=== PATIENT | female | born 1970 | race Caucasian/White ===

== ENCOUNTER → 2017-02-25 | Outpatient (CLI) | payer BC ==
--- NOTE | 2017-02-26 08:54 | WWHP ---
DATE OF SERVICE: 02/25/2017 CHIEF COMPLAINT: The patient is here for her routine gynecologic exam and mammogram. HPI: This is a 46-year-old G0 with an LMP of 02/21/2017. The patient has been having episodes of feeling warm and this is throughout the day, but can also be at night. She states her periods are regular every month. She has been experiencing some pain in the area of the left hip and this has been going on for about 2 to 3 months. She states she thinks it may be a bit worse around the time of her period. She states the pains can be sharp, but she is not experiencing any pain at this time. PAST MEDICAL HISTORY: Chronic hypertension and possible peptic ulcer disease. She has had extra axillary breast tissue on the right side since about 1999. MEDICATIONS: 1. Hydrochlorothiazide 25 mg daily. 2. Protonix 1 daily. ALLERGIES: No known drug allergies. PAST SURGICAL HISTORY: Laparoscopic cholecystectomy 2013 and colonoscopy in 2013. 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 SOCIAL HISTORY: She denies tobacco, alcohol, and drug use. 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 She is currently living with her parents who have some medical problems. She is not seeing anybody at this time and has never been sexually active. FAMILY HISTORY: Unchanged from the 2015 H&P. REVIEW OF SYSTEMS: Weight has been stable. She denies cardiac or GI problems. RESPIRATORY: She has noticed she does seem to cough more when she is lying down. PHYSICAL EXAM: Blood pressure 156/88. Height 5 feet 2-1/2 inches. Weight 157 pounds. Temperature 97.7, pulse 78. This a well-developed, well-nourished white female who is alert and oriented x3, in no acute distress. HEENT is within normal limits. NECK: Supple without mass or thyromegaly. CHEST AND LUNGS: Clear to auscultation. HEART: Regular rate and rhythm. Breasts are without mass or discharge. Axillary exam is negative for adenopathy. BACK: Negative for CVA tenderness. ABDOMEN: Soft, nontender, without palpable masses. PELVIC EXAM: Normal external genitalia. The introitus is small consistent with being a virgin. A small speculum was inserted. A flat polypoid mass measuring approximately 1.5 x 2 x 0.5 cm was visualized. This was pink, the color of mucosal tissue. This had a benign appearance. Upon doing the Pap smear, the cervix or polypoid tissue was friable and bleed fairly easily. There is no cervical motion tenderness. The uterus is midposition, nongravid size and nontender. There are no palpable adnexal masses or tenderness. Rectal exam was not performed as attention was turned to the polypoid mass. I discussed the findings with the patient, with her verbal consent removal of the mass was performed. The speculum was reinserted. A ring forceps was used to grasp the polypoid mass and the mass was removed by rotating the ring forceps instrument. The site of its attachment to the cervix was made hemostatic with Monsel solution. The patient tolerated the procedure well. The estimated blood loss was approximately 2 to 3 mL. There were no complications. IMPRESSION: 1. A 46-year-old virginal female with polypoid cervical mass measuring approximately 2 x 1.5 x 0.5 cm. The polypoid mass was removed at this appointment without difficulty. 2. Intermittent pain in the area of the left hip with no significant physical findings at this time and no current pain at this time. Differential diagnosis will include hip joint problems as well as pain from the pelvis including enlarging uterine fibroid and ovarian cyst. PLAN: 1. Pap smear was performed. 2. Self breast examination was discussed. 3. Mammogram will be done today. 4. The polypoid cervical tissue will be sent for pathological examination. 5. The patient will follow up with her primary care physician for her hypertension and her elevated blood pressure today. 6. Will plan on repeating the pelvic ultrasound to see if there any gynecologic causes for the pain in the area of the left hip. 7. She will also return in one year and p.r.n.
--- NOTE | 2017-02-27 11:47 | MM ---
Reason for exam: screening (asymptomatic). Last mammogram was performed 2 years and 2 months ago. History: Patient is nulliparous. Physical Findings: A clinical breast exam by your physician is recommended on an annual basis and results should be correlated with mammographic findings. MG Screening Mammo w CAD Bilateral CC and MLO view(s) were taken. Prior study comparison: January 03, 2015, bilateral MG screening mammo w CAD. The breast tissue is heterogeneously dense. This may lower the sensitivity of mammography. Reinform shaped asymmetry lateral posterior left breast. As this was not seen previously, a 6 month follow up is recommended. A lymph node is favored. ASSESSMENT: Probably benign, BI-RAD 3 RECOMMENDATION: Follow-up diagnostic mammogram of the left breast in 6 months. DESTINEY
== END | disposition home or self-care (01) ==
LOC: WWCWWP 13:14
PROVIDERS: ATTEND Obstetrics & Gynecology
DX: Z12.31 Encounter for screening mammogram for malignant neoplasm of breast (principal); N84.1 Polyp of cervix uteri; N87.9 Dysplasia of cervix uteri, unspecified; N72 Inflammatory disease of cervix uteri
CPT/HCPCS: 88305; G0202

== ENCOUNTER → 2018-05-13 | Outpatient (CLI) | payer OTHER ==
[2018-05-13 09:29] VITALS: BP 166/77; PULSE 77; RESP 18; TEMP 97.7; BMI 28.1
--- NOTE | 2018-05-13 10:23 | P.HPOB ---
History of Present Illness H&P Date: 05/13/18 Chief Complaint: The patient is here for her routine gynecologic exam and mammogram. This is a 47-year-old G0 with an LMP of 04/20/2018. The patient's menses are regular every 28 days. They typically last about 7 days. 3 days are heavier. She has noticed 2 days of additional spotting after her menstrual flow seems to be complete. She is also experiencing some vaginal and vulvar pruritus which she noticed the day after jumping into a pool. She states she feels like she has the start of a yeast infection. She denies any significant discharge or odor. She has noticed some right breast soreness during the past few days. She had an abnormal left mammogram one year ago and did not go for the 6 month follow-up as she was instructed. She denies any nipple discharge. She is not sexually active and is a virgin. Review of Systems The patient has lost 3 pounds over the last year. She denies respiratory, cardiac, or G.I. problems. Past Medical History Past Medical History: Hypertension Additional Past Medical History / Comment(s): possible TIA in 2012, heavy menstral cycles resulting in chronic anemia, esophageal stricture per GI doc does not require intervention at this time,endometriosis, multiple UTI's. 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 She had a 3.3 cm fibroid in 2010. 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 - Past Family History Father Family Medical History: Cancer (Skin), Diabetes Mellitus Mother Family Medical History: Myocardial Infarction ([place]) Medications and Allergies Home Medications Medication Instructions Recorded Confirmed Type Ferrous Sulfate [Iron (65 MG 325 mg PO DAILY 02/09/16 02/09/16 History Elemental)] Lisinopril-Hctz 10-12.5 mg 1 tab PO DAILY 02/09/16 02/09/16 History [Zestoretic 10-12.5] Atorvastatin [Lipitor] 40 mg PO HS #30 tab 02/11/16 Rx HYDROcodone/APAP 5-325MG [[place] 1 tab PO Q6HR PRN #15 tab 02/11/16 Rx 5-325] L.acidoph,Paracasei, B.lactis 1 each PO DAILY 7 Days capsule 02/11/16 Rx [Probiotic] Levofloxacin [Levaquin] 500 mg PO DAILY #5 tab 02/11/16 Rx Pantoprazole [Protonix] 40 mg PO AC-BRKFST #30 tablet. 02/11/16 Rx Allergies Allergy/AdvReac Type Severity Reaction Status Date / Time ANTIBIOTIC FOR UTI Allergy Itching Uncoded 05/13/18 09:39 Exam - Vital Signs Vital signs: Vital Signs Temp Pulse Resp BP 05/13/18 09:21 97.7 F 77 18 166/77 Intake and Output 05/12/18 05/13/18 05/13/18 22:59 06:59 14:59 Other: Weight 69.853 kg Height 5'2", BMI 28.2. This is a well-developed well-nourished white female who is alert and oriented times 3 in no acute distress. HEENT: Within normal limits. NECK: Supple without mass or thyromegaly. CHEST AND LUNGS: Clear to auscultation. HEART: Regular rate and rhythm. BREASTS: Are without mass or discharge. The right breast has some accessory breast tissue at the 10 o'clock position measuring approximately 3 x 4 cm that is on the edge of the axilla. This is mildly tender and this is where she has been having some breast soreness recently. There are no palpable masses within this soft accessory tissue. The left breast is nontender. AXILLARY EXAM: Negative for adenopathy. BACK: Negative for CVA tenderness. ABDOMEN: Soft, nontender, without palpable masses. PELVIC EXAM: external genitalia has minimal generalized erythema without focal lesion. Introitus is virginal. Cervix and vagina appear normal. There is no unusual discharge. There is no evidence of prolapse. The uterus is midposition , nongravid size and nontender. There are no palpable adnexal masses or tenderness. RECTAL EXAM: negative for mass or tenderness and is negative for occult blood. EXTREMITIES: Nontender. IMPRESSION: 1. 47-year-old virginal female with recent vulvar and vaginal pruritus after swimming in a pool. Possible vulvar irritation from the pool water or possible early mora vaginitis. 2. Right breast soreness in accessory tissue and devious abnormal left mammogram without the recommended six-month follow-up. 3. 2 days of spotting at the end of menses just after menstrual flow seems to have stopped. This probably represents some perimenopausal hormonal changes causing lengthening of the monthly menstrual flow. PLAN: 1. Pap smear was deferred since she had a normal one last year. 2. Self breast awareness was discussed. 3. Diagnostic bilateral mammogram will be done today. 4. The patient will keep a menstrual calendar and call if she's having greater menstrual irregularity. 5. Diflucan 150 mg PO times 1 and Kenalog 0.1% cream b.i.d. PRN pruritus. An electronic prescription will be sent to [facility] pharmacy. 6. She will return one year and PRN.
--- NOTE | 2018-05-13 11:31 | MM ---
Reason for exam: additional evaluation requested from prior study. Last mammogram was performed 1 year and 3 months ago. History: Patient is nulliparous. Physical Findings: Dr. Blackwood did not find any significant physical abnormalities on exam. MG 3D Diag Mammo W/Cad KASSANDRA Bilateral CC and MLO view(s) were taken. XCCL view(s) were taken of the left breast. Prior study comparison: February 25, 2017, bilateral MG screening mammo w CAD. January 03, 2015, bilateral MG screening mammo w CAD. The breast tissue is extremely dense which could obscure a lesion on mammography. There is no discrete abnormality. Skin tag outer left breast. These results were verbally communicated with the patient and result sheet given to the patient on 05/13/18. ASSESSMENT: Benign, BI-RAD 2 RECOMMENDATION: Routine screening mammogram of both breasts in 1 year.
== END | disposition home or self-care (01) ==
LOC: WWCWWP 09:08
PROVIDERS: ATTEND Obstetrics & Gynecology
DX: N64.4 Mastodynia (principal); R92.8 Other abnormal and inconclusive findings on diagnostic imaging of breast
CPT/HCPCS: 77066; G0279; 77062

== ENCOUNTER → 2018-07-17 | Outpatient (CLI) | payer OTHER ==
[2018-07-17 13:08] LABS: Anisocytosis Slight; HCT 31.9 % (34.0-46.0); HGB 9.7 gm/dL (11.4-16.0); Hypochromasia Marked; MCH 23.2 pg (25.0-35.0); MCHC 30.5 g/dL (31.0-37.0); MCV 76.1 fL (80.0-100.0); Mean Platelet Volume 7.2; Microcytosis Moderate; Platelet Count 304 k/uL (150-450); RBC 4.19 m/uL (3.80-5.40); RDW 18.5 % (11.5-15.5); WBC 6.2 k/uL (3.8-10.6)
[2018-07-17 13:15] LABS: Appearance,Urine Clear (Clear); Bacteria,Urine Rare /hpf; Bilirubin,Urine Negative (Negative); Blood,Urine Negative (Negative); Color,Urine Yellow; Glucose,Urine (UA) Negative (Negative); Ketones,Urine 1+ (Negative); Leukocyte Esterase,Urine Trace (Negative); Mucus,Urine Moderate /hpf; Nitrite,Urine Negative (Negative); Protein,Urine Trace (Negative); Specific Gravity,Urine 1.021 (1.001-1.035); Squamous Epithelial Cell,Urine 3 /hpf (0-4); Urobilinogen,Urine <2.0 mg/dL (<2.0); WBC,Urine 2 /hpf (0-5)
[2018-07-17 13:24] LABS: ALT 44 U/L (9-52); AST 29 U/L (14-36); Albumin 4.1 g/dL (3.5-5.0); Alkaline Phosphatase 66 U/L (38-126); Anion Gap 7 mmol/L; Blood Urea Nitrogen 10 mg/dL (7-17); Calcium 9.5 mg/dL (8.4-10.2); Carbon Dioxide 27 mmol/L (22-30); Chloride 106 mmol/L (98-107); Cholesterol 196 mg/dL (<200); Glucose 85 mg/dL (74-99); HDL Cholesterol 44 mg/dL (40-60); LDL Cholesterol,Calculated 135 mg/dL (0-99); Potassium 4.1 mmol/L (3.5-5.1); Sodium 140 mmol/L (137-145); Total Bilirubin 0.3 mg/dL (0.2-1.3); Total Protein 6.9 g/dL (6.3-8.2); Triglycerides 87 mg/dL (<150)
[2018-07-17 19:55] LABS: Hemoglobin A1C 5.6 % (4.0-6.0)
== END | disposition home or self-care (01) ==
LOC: LABWHC1 12:41
PROVIDERS: ATTEND Family Medicine
DX: Z00.00 Encounter for general adult medical examination without abnormal findings (principal); E66.3 Overweight
CPT/HCPCS: 36415; 80053; 80061; 81001; 82306; 83036; 84443; 85027

== ENCOUNTER → 2019-08-09 | Outpatient (CLI) | payer OTHER ==
[2019-08-09 12:58] LABS: Appearance,Urine Clear (Clear); Bilirubin,Urine Negative (Negative); Blood,Urine Negative (Negative); Color,Urine Yellow; Glucose,Urine (UA) Negative (Negative); Ketones,Urine Negative (Negative); Leukocyte Esterase,Urine Negative (Negative); Nitrite,Urine Negative (Negative); Protein,Urine Negative (Negative); Specific Gravity,Urine 1.025 (1.001-1.035); Urobilinogen,Urine <2.0 mg/dL (<2.0)
[2019-08-09 13:04] LABS: HCT 36.1 % (34.0-46.0); HGB 11.8 gm/dL (11.4-16.0); MCH 28.8 pg (25.0-35.0); MCHC 32.7 g/dL (31.0-37.0); Mean Platelet Volume 6.6; Platelet Count 408 k/uL (150-450); RDW 14.2 % (11.5-15.5); WBC 10.2 k/uL (3.8-10.6)
[2019-08-09 19:29] LABS: African American GFR (CKD) 116.3 (60.0-200.0); Albumin 4.4 g/dL (3.80-4.90); Albumin/Globulin Ratio 2.2 (1.60-3.17); Anion Gap 12.9 mmol/L (4.00-12.00); BUN/Creat Ratio 17.14 Ratio (12.00-20.00); Calcium 9.5 mg/dL (8.7-10.3); Carbon Dioxide 25.1 mmol/L (21.6-31.8); Chol/HDL Ratio 5.09; LDL Cholesterol,Calculated 159.8 mg/dL (0.0-131.0); Potassium 4.3 mmol/L (3.5-5.5); Total Bilirubin 0.2 mg/dL (0.2-1.2); Total Protein 6.4 g/dL (6.2-8.2); VLDL Calculation 28.2 mg/dL (5.00-40.00)
[2019-08-09 20:42] LABS: Hemoglobin A1C 5.9 % (4.0-6.0)
== END ==
LOC: LABWHC1 12:01
PROVIDERS: ATTEND Family Medicine
DX: Z00.00 Encounter for general adult medical examination without abnormal findings (principal); E66.3 Overweight
CPT/HCPCS: 36415; 80053; 80061; 81003; 82306; 83036; 84443; 85027

== ENCOUNTER → 2019-09-14 | Outpatient (CLI) | payer OTHER ==
[2019-09-14 11:39] VITALS: BP 142/90; PULSE 77; RESP 18; TEMP 98.2; BMI 29.6
--- NOTE | 2019-09-14 12:26 | P.HPOB ---
History of Present Illness H&P Date: 09/14/19 Chief Complaint: The patient is here for her routine gynecologic exam and ma mmogram. This is a 49-year-old G0 with an LMP of 08/21/2019. The patient denies any sexual activity in her lifetime. She is without gynecologic complaints. Menstrual periods are regular every month lasting 6 days with 1-2 days of heavier flow. They are slightly shorter and less heavy than in the past. Review of Systems The patient has gained 8 pounds over the last year. She denies respiratory, cardiac, or G.I. problems. Past Medical History Past Medical History: Hypertension Additional Past Medical History / Comment(s): possible TIA in 2012, heavy menstral cycles resulting in chronic anemia, esophageal stricture per GI doc does not require intervention at this time, multiple UTI's. 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 She had a 3.3 cm fibroid in 2010. History of endometriosis. 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 She is not seeing anybody and is not sexually active. - Past Family History Father Family Medical History: Cancer, Diabetes Mellitus Additional Family Medical History / Comment(s): Skin cancer. Mother Family Medical History: Myocardial Infarction ([place]) Medications and Allergies Home Medications Medication Instructions Recorded Confirmed Type Ferrous Sulfate [Iron (65 MG 325 mg PO DAILY 02/09/16 09/14/19 History Elemental)] Lisinopril-Hctz 10-12.5 mg 1 tab PO DAILY 02/09/16 09/14/19 History [Zestoretic 10-12.5] Pantoprazole [Protonix] 40 mg PO SADIA #30 tablet. 02/11/16 09/14/19 Rx Cholecalciferol (Vitamin D3) 2,000 unit PO DAILY 09/14/19 09/14/19 History [Vitamin D3] Ibuprofen [Motrin] 400 mg PO Q6HR PRN 09/14/19 09/14/19 History Allergies Allergy/AdvReac Type Severity Reaction Status Date / Time ANTIBIOTIC FOR UTI Allergy Itching Uncoded 09/14/19 11:32 Exam Vital Signs Temp Pulse Resp BP Pulse Ox 09/14/19 11:36 98.2 F 77 18 142/90 100 Intake and Output 09/13/19 09/14/19 09/14/19 22:59 06:59 14:59 Other: Weight 73.482 kg Height 5 feet 2 inches, weight 162 pounds. BMI 29.6. This is a well-developed well-nourished white female who is alert and oriented times 3 in no acute distress. HEENT: Within normal limits. NECK: Supple without mass or thyromegaly. CHEST AND LUNGS: Clear to auscultation. HEART: Regular rate and rhythm. BREASTS: Are without mass or discharge. AXILLARY EXAM: Negative for adenopathy. BACK: Negative for CVA tenderness. ABDOMEN: Soft, nontender, without palpable masses. PELVIC EXAM: Normal external genitalia. The introitus is virginal and allows a small Graves speculum only. Cervix and vagina appear normal. There is no unusual discharge. There is no evidence of prolapse. The uterus is midposition, 10-12week size and nontender. There are no palpable adnexal masses or tenderness. RECTAL EXAM: Rectovaginal exam is negative for mass or tenderness and is negative for occult blood. EXTREMITIES: Nontender. IMPRESSION: 1. 49-year-old virginal female with mild uterine enlargement and otherwise normal gynecologic exam. 2. History of uterine fibroids. PLAN: 1. Pap smear was performed. 2. Self breast awareness was discussed with the patient. 3. Screening mammogram will be done today. 4. The patient will keep a menstrual calendar. She will call if menstrual problems. 5. Pelvic ultrasound was recommended to further evaluate the mild uterine enlargement and history of uterine fibroids. The order slip was given to the patient for this. 6. She was advised to return in one year for her annual well woman exam and as needed.
--- NOTE | 2019-09-15 11:47 | MM ---
Reason for exam: screening (asymptomatic). Last mammogram was performed 1 year and 4 months ago. History: Patient is nulliparous. Physical Findings: A clinical breast exam by your physician is recommended on an annual basis and results should be correlated with mammographic findings. MG Screening Mammo w CAD Bilateral CC, MLO, and XCCL view(s) were taken. Prior study comparison: May 13, 2018, bilateral MG 3d diag mammo w/cad KASSANDRA. February 25, 2017, bilateral MG screening mammo w CAD. The breast tissue is extremely dense which could obscure a lesion on mammography. There are benign appearing round calcifications bilaterally. There is no discrete abnormality. ASSESSMENT: Benign, BI-RAD 2 RECOMMENDATION: Routine screening mammogram of both breasts in 1 year.
== END | disposition home or self-care (01) ==
LOC: WWCWWP 11:15
PROVIDERS: ATTEND Obstetrics & Gynecology
DX: Z12.31 Encounter for screening mammogram for malignant neoplasm of breast (principal)
CPT/HCPCS: 77067

== ENCOUNTER → 2019-09-23 | Outpatient (CLI) | payer OTHER ==
--- NOTE | 2019-09-24 07:21 | US ---
EXAMINATION TYPE: US pelvic complete DATE OF EXAM: 09/23/2019 COMPARISON: CT & US CLINICAL HISTORY: R68.89 UTERINE ENLARGEMENT. TECHNIQUE: Transabdominal (TA). Order stated only transabdominal. Date of LMP: on right now. EXAM MEASUREMENTS: Uterus: 9.4 x 5.9 x 6.8 cm Endometrial Stripe: 1.3 cm Right Ovary: 5.3 x 4.4 x 3.9 cm Left Ovary: 7.3 x 6.7 x 6.0 cm 1. Uterus: Anteverted possible fibroid right uterus measures at least 4.2 x 1.8 x 3.2 cm 2. Endometrium: 1.3 3. Right Ovary: cyst measures 4.9 x 2.7 x 3.8 cm 4. Left Ovary: complicated cyst measures 5.5 x 4.4 x 6.3. 5. Bilateral Adnexa: wnl 6. Posterior cul-de-sac: no free fluid Order states only transabdominal. Unable to doppler ovaries transabdominally. IMPRESSION: 1. Complex 5.5 cm lesion of the left ovary has homogeneous internal echoes and was not seen on the ex am of 2014. Differential consideration is for endometrioma, hemorrhagic cyst, mucinous cystadenoma or mucinous cystadenocarcinoma. Consensus criteria recommends follow-up ultrasound in 6-[address] able this would be favored to represent an endometrioma or mucinous neoplasm. If resolved or smaller this would be favored to represent an involuting hemorrhagic cyst. 2. Probable 4.2 cm intramural leiomyoma, enlarged from 2015.
== END | disposition home or self-care (01) ==
LOC: RADUSWWP 15:57
PROVIDERS: ATTEND Obstetrics & Gynecology
DX: D25.9 Leiomyoma of uterus, unspecified (principal); N85.2 Hypertrophy of uterus
CPT/HCPCS: 76856

== ENCOUNTER 2019-10-06 16:07 | Emergency (ER) | payer OTHER ==
[2019-10-06 16:27] VITALS: BP 150/86; PULSE 83; RESP 18; TEMP 98
[2019-10-06] MEDS ORDERED: CEPHALEXIN 500 MG CAP PO STA (16:46)
[2019-10-06] MEDS ORDERED: LIDOCAINE 1% INJ 10MG/ML (20 ML MDV) SQ ONE (16:47)
[2019-10-06] MEDS ORDERED: KETOROLAC 60 MG/2 ML VIAL IM STA (16:57)
--- NOTE | 2019-10-06 16:57 | ED ---
Upper Extremity HPI - General Chief Complaint: Extremity Injury, Upper Stated Complaint: left thumb crushing injury Time Seen by Provider: 10/06/19 16:37 Source: patient Mode of arrival: ambulatory Limitations: no limitations - History of Present Illness Initial Comments: Patient is a 49-year-old female presenting to emergency Department with complaints of an injury to her left thumb that happened just prior to arrival. Patient states she was stacking some wood when a few pieces fell onto her left thumb. Patient states her left thumb nail is split and that her left thumb "is flat." Patient wrapped her thumb in a towel and stuck it in ice bag and came straight to the ER. Patient denies being on blood thinners. Patient's tetanus vaccine is up-to-date. Patient denies any previous injuries to her left thumb or hand. Bleeding is controlled at this time. Patient has no other complaints at this time. Upon arrival to the ER, vital signs are stable. - Related Data Home Medications Medication Instructions Recorded Confirmed Ferrous Sulfate [Iron (65 MG 325 mg PO DAILY 02/09/16 09/14/19 Elemental)] Lisinopril-Hctz 10-12.5 mg 1 tab PO DAILY 02/09/16 09/14/19 [Zestoretic 10-12.5] Cholecalciferol (Vitamin D3) 2,000 unit PO DAILY 09/14/19 09/14/19 [Vitamin D3] Ibuprofen [Motrin] 400 mg PO Q6HR PRN 09/14/19 09/14/19 Previous Rx's Medication Instructions Recorded Pantoprazole [Protonix] 40 mg PO OSCAR-BRKFST #30 tablet. 02/11/16 Cephalexin [Keflex] 500 mg PO BID 5 Days #10 cap 10/06/19 Allergies Allergy/AdvReac Type Severity Reaction Status Date / Time ANTIBIOTIC FOR UTI Allergy Itching Uncoded 10/06/19 16:27 Review of Systems ROS Statement: Those systems with pertinent positive or pertinent negative responses have been documented in the HPI. ROS Other: All systems not noted in ROS Statement are negative. Past Medical History Past Medical History: Hypertension Additional Past Medical History / Comment(s): possible TIA in 2012, heavy menstral cycles resulting in chronic anemia, esophageal stricture per GI doc does not require intervention at this time, multiple UTI's. 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 She had a 3.3 cm fibroid in 2010. History of endometriosis. History of Any Multi-Drug Resistant Organisms: None Reported Past Surgical History: Cholecystectomy Additional Past Surgical History / Comment(s): colonoscopy 2013 Past Anesthesia/Blood Transfusion Reactions: No Reported Reaction Past Psychological History: No Psychological Hx Reported Smoking Status: Never smoker Past Alcohol Use History: None Reported Past Drug Use History: None Reported - Past Family History Father Family Medical History: Cancer, Diabetes Mellitus Additional Family Medical History / Comment(s): Skin cancer. Mother Family Medical History: Myocardial Infarction ([place]) General Exam - General Exam Comments Initial Comments: GENERAL: Well-appearing, well-nourished and in no acute distress, but appears uncomfortable. HEAD: Atraumatic, normocephalic. EYES: Pupils equal round and reactive to light, extraocular movements intact, sclera anicteric, conjunctiva are normal. ENT: Moist mucous membranes. NECK: Normal range of motion, supple without lymphadenopathy or JVD. LUNGS: Breath sounds clear to auscultation bilaterally and equal. No wheezes rales or rhonchi. HEART: Regular rate and rhythm without murmurs, rubs or gallops. EXTREMITIES: Patient has an obvious deformity of the left thumb and thumb nail. There is minimal bleeding coming from the thumbnail. Patient has pain with palpation of the left thumb. NEUROLOGICAL: Cranial nerves II through XII grossly intact. Normal speech, normal gait. PSYCH: Normal mood, normal affect. SKIN: Warm, Dry, normal turgor, no rashes or lesions noted. Limitations: no limitations Course Vital Signs 10/06/19 16:24 Temperature 98.0 F Pulse Rate 83 Respiratory 18 Rate Blood Pressure 150/86 O2 Sat by Pulse 99 Oximetry Procedures - Laceration Laceration #1 Consent Obtained: verbal consent Indication: laceration Site: other (Left thumb, nail involvement) Size (cm): 1 Description: linear, avulsion Depth: simple, single layer Anesthetic Used: lidocaine 1% Anesthesia Technique: nerve block Amount (mls): 5 Pre-repair: irrigated extensively Type of Sutures: nylon Size of Sutures: 4-0 Number of Sutures: 5 Technique: simple, interrupted Patient Tolerated Procedure: well Additional Comments: 3 sutures were used to tack down nail to nail bed and 2 other sutures were used to fix small lacerations on the side of the nail. Each laceration on each side of the nail is 0.5 cm in length totaling 1 cm. Medical Decision Making - Medical Decision Making Patient is a 49-year-old female presenting with an injury to her left thumb and thumb nail. Patient's left thumb was crushed under to with blocks. Bleeding is controlled at this time. X-rays of the left thumb reveal an acute tuft fracture of the distal phalanx of the left thumb. There is a fragment separation of 3 mm. Patient was given dose of Keflex in the ER. Digital block was performed and 5 sutures were used to tack down nail to nail bed as well as fix lacerations. Patient's wound was bandaged and splint was applied to the left thumb. Patient was given prescription for Keflex, Tylenol 3's as well as orthopedic referral. Patient is stable for discharge at this time. Discussed with patient to alternate between Tylenol threes as well as Motrin. Patient will use ice as needed for swelling and pain control and keep them elevated. Patient is agreeable with this plan of care. Return parameters were discussed with the patient she verbalized understanding. Case discussed with Dr. Robert. Disposition Clinical Impression: Open fracture of tuft of distal phalanx of left thumb Disposition: HOME SELF-CARE Condition: Stable Instructions (If sedation given, give patient instructions): Thumb Fracture (ED) Additional Instructions: Please return to the Emergency Department if symptoms worsen or any other concerns. Alternate between Tylenol and Motrin for pain control. Keep the thumb elevated. May use ice for swelling and pain relief. Take antibiotics as prescribed. Follow-up with orthopedics as discussed. Prescriptions: Cephalexin [Keflex] 500 mg PO BID 5 Days #10 cap Is patient prescribed a controlled substance at d/c from ED?: No Referrals: Jorje Lagunas DO [Primary Care Provider] - 1-2 days Jb Alfonso MD [STAFF PHYSICIAN] - 1-2 days
--- NOTE | 2019-10-06 17:17 | XR ---
EXAMINATION TYPE: XR hand limited LT DATE OF EXAM: 10/06/2019 COMPARISON: NONE HISTORY: Trauma Pain TECHNIQUE: 3 views FINDINGS: There is a transverse fracture through the tuft of the distal phalanx of the thumb. There i s soft tissue deformity. There is no dislocation. Joint spaces are fairly normal. IMPRESSION: Acute tuft fracture distal phalanx of the left thumb. There is fragment separation 3 mm.
[2019-10-06] MEDS ORDERED: ACET/COD 300 MG/30 MG STARTER PACK 6 TAB BTL PO STA (18:49)
== END 2019-10-06 19:26 | disposition home or self-care (01) ==
LOC: EC 16:07
DX: S62.522B Displaced fracture of distal phalanx of left thumb, initial encounter for open fracture (principal); I10 Essential (primary) hypertension; D50.0 Iron deficiency anemia secondary to blood loss (chronic); Z88.1 Allergy status to other antibiotic agents; Z79.899 Other long term (current) drug therapy; W20.8XXA Other cause of strike by thrown, projected or falling object, initial encounter; Y93.89 Activity, other specified; Y92.89 Other specified places as the place of occurrence of the external cause
CPT/HCPCS: 73120; 99283; 12001; 96372; J2001; J1885

== ENCOUNTER → 2019-11-11 | Outpatient (CLI) | payer OTHER ==
--- NOTE | 2019-11-11 13:00 | ECHOF ---
Referral Reason:Hypertension I10 MEASUREMENTS -------- HEIGHT: 157.5 cm WEIGHT: 68.9 kg BP: RVIDd: 2.6 cm (< 3.3) IVSd: 0.9 cm (0.6 - 1.1) LVIDd: 4.4 cm (3.9 - 5.3) LVPWd: 1.0 cm (0.6 - 1.1) IVSs: 1.3 cm LVIDs: 2.5 cm LVPWs: 1.5 cm LA Diam: 2.7 cm (2.7 - 3.8) LAESV Index (A-L): 21.15 ml/m Ao Diam: 3.1 cm (2.0 - 3.7) AV Cusp: 1.8 cm (1.5 - 2.6) LA Diam: 3.4 cm (2.7 - 3.8) MV EXCURSION: 18.525 mm (> 18.000) MV EF SLOPE: 64 mm/s (70 - 150) EPSS: 0.5 cm MV E Taj: 0.48 m/s MV DecT: 203 ms MV A Taj: 0.63 m/s MV E/A Ratio: 0.77 RAP: 5.00 mmHg RVSP: 20.05 mmHg FINDINGS -------- Sinus rhythm. This was a technically good study. LV size, wall thickness and systolic function are normal, with an EF greater than 55%. The left edenilson tricular size is normal. The diastolic filling pattern is normal for the age of the patient 7.49. The right ventricle is normal in size. The left atrial size is normal. Normal LA size by volume 22+/-6 ml/m2. The right atrial size is normal. The aortic valve is trileaflet, and appears structurally normal. No aortic stenosis or regurgitation. Mild mitral annular calcification present. Mild mitral regurgitation is present. Mild tricuspid regurgitation present. Right ventricular systolic pressure is normal at < 35 mmHg. There is no evidence of pulmonary hypertension. There is no pulmonic regurgitation present. The aortic root size is normal. There is no pericardial effusion. CONCLUSIONS -------- 1. Sinus rhythm. 2. This was a technically good study. 3. LV size, wall thickness and systolic function are normal, with an EF greater than 55%. 4. The left ventricular size is normal. 5. The diastolic filling pattern is normal for the age of the patient 7.49 6. The right ventricle is normal in size. 7. The left atrial size is normal. 8. Normal LA size by volume 22+/-6 ml/m2. 9. The right atrial size is normal. 10. The aortic valve is trileaflet, and appears structurally normal. No aortic stenosis or regurgitat ion. 11. Mild mitral annular calcification present. 12. Mild mitral regurgitation is present. 13. Mild tricuspid regurgitation present. 14. Right ventricular systolic pressure is normal at < 35 mmHg. 15. There is no evidence of pulmonary hypertension. 16. There is no pulmonic regurgitation present. 17. The aortic root size is normal. 18. There is no pericardial effusion. ELECTRIC TRACK SWITCH MAINTAINER: Cynthia Webb RDCS
--- NOTE | 2019-11-12 14:12 | ECHOS ---
STRESS ECHOCARDIOGRAM DATE OF SERVICE: 11/11/2019 INDICATIONS: Chest discomfort. MEDICATIONS: BASELINE HEART RATE: 68 BASELINE BLOOD PRESSURE: 144/74 MAXIMUM HEART RATE: 146 MAXIMUM BLOOD PRESSURE: 185/103 85% MPHR: 144 100% MPHR: 169 METS: 10.3 MAXIMUM STAGE REACHED: III TOTAL EXERCISE TIME: 9 minutes CLINICAL INFORMATION: STRESS DATA: Heart rate 68, pressure is 144/74 mmHg. Baseline EKG showed sinus mechanism. The patient exercised on the treadmill according to Leonidas protocol for a total of 9 minutes and achieved 10.3 METs. Max heart rate was 146, which is about 99% of maximum predicted heart rate. Maximum blood pressure was 185/103 mmHg. Clinically the patient did not have any symptoms of chest pain or chest discomfort. The EKG showed about 0.[address]-segment changes at peak exercise as well as on recovery. ECHOCARDIOGRAM IMAGES: On echocardiogram images from parasternal long axis view, parasternal short axis view, apical 4 chamber and apical 2 chamber were obtained as the baseline images, at the peak of the heart rate as well as on recovery. The echocardiogram images showed good augmentation in the left ventricular systolic function without any obvious wall motion abnormalities concerning for ischemia. CONCLUSION: 1. Excellent exercise tolerance. 2. Mild EKG changes in response to exercise. 3. Normal echocardiogram in response to exercise. MMODL / IJN: [id number] /
== END | disposition home or self-care (01) ==
LOC: RADNMMAIN 09:27
PROVIDERS: ATTEND Internal Medicine Cardiovascular Disease
DX: I08.1 Rheumatic disorders of both mitral and tricuspid valves (principal); I10 Essential (primary) hypertension; R07.9 Chest pain, unspecified
CPT/HCPCS: 93306; 93351

== ENCOUNTER → 2019-12-01 | Outpatient (CLI) | payer OTHER ==
--- NOTE | 2019-12-01 15:47 | US ---
EXAMINATION TYPE: US pelvic complete DATE OF EXAM: 12/01/2019 COMPARISON: NONE CLINICAL HISTORY: R19.09 Other intra-abdominal and pelvic swelling,. Follow up bilateral ovarian cyst s TECHNIQUE: Transabdominal (TA). Patient refusing TV exam at this time Date of LMP: 11/22/19 EXAM MEASUREMENTS: Uterus: 8.6 x 6.1 x 5.9 cm Endometrial Stripe: 0.7 cm Right Ovary: 3.9 x 2.7 x 4.2 cm Left Ovary: 5.7 x 4.6 x 5.5 cm 1. Uterus: Anteverted possible fibroid right uterus = 4.1 x 2.5 x 3.1cm as on prior exam 2. Endometrium: appears wnl as visualized 3. Right Ovary: cystic area = 3.2 x 2.7 x 3.3cm . Previous cyst measures 4.9 x 2.7 x 3.8 cm. 4. Left Ovary: complicated cyst = 5.1 x 4.2 x 4.4cm . Previous measurement 5.5 x 4.4 x 6.3 cm. 5. Bilateral Adnexa: appears wnl 6. Posterior cul-de-sac: appears wnl IMPRESSION: 1. Complex cyst left ovary. This was present previously slightly diminished in size without resolutio n. Consider additional workup. Correlation with laboratory results recommended. 2. Simple appearing right ovarian cyst. 3. Uterine fibroids
== END | disposition home or self-care (01) ==
LOC: RADUSWWP 13:54
PROVIDERS: ATTEND Obstetrics & Gynecology
DX: N83.202 Unspecified ovarian cyst, left side (principal); N83.291 Other ovarian cyst, right side; D25.9 Leiomyoma of uterus, unspecified
CPT/HCPCS: 76856

== ENCOUNTER → 2019-12-03 | Outpatient (CLI) | payer OTHER ==
[2019-12-03 12:15] LABS: HGB 10.1 gm/dL (11.4-16.0); Hypochromasia Moderate; MCH 24.8 pg (25.0-35.0); MCHC 30.7 g/dL (31.0-37.0); MCV 80.6 fL (80.0-100.0); Mean Platelet Volume 7.9; Platelet Count 362 k/uL (150-450); RDW 15.2 % (11.5-15.5); WBC 5.4 k/uL (3.8-10.6)
[2019-12-03 19:04] LABS: Anion Gap 5.9 mmol/L (4.00-12.00); Carbon Dioxide 29.1 mmol/L (21.6-31.8); Chol/HDL Ratio 5.45; LDL Cholesterol,Calculated 154.2 mg/dL (0.0-131.0); Potassium 3.9 mmol/L (3.5-5.5); VLDL Calculation 23.8 mg/dL (5.00-40.00)
== END | disposition home or self-care (01) ==
LOC: LABWHC1 11:28
PROVIDERS: ATTEND Internal Medicine Cardiovascular Disease
DX: I10 Essential (primary) hypertension (principal); I25.10 Atherosclerotic heart disease of native coronary artery without angina pectoris; R07.9 Chest pain, unspecified
CPT/HCPCS: 36415; 80051; 80061; 82550; 85027

== ENCOUNTER → 2020-02-02 | Outpatient (CLI) | payer OTHER ==
[2020-02-02 13:25] LABS: Anisocytosis Slight; HCT 33.5 % (34.0-46.0); HGB 10.2 gm/dL (11.4-16.0); Hypochromasia Marked; MCH 23.8 pg (25.0-35.0); MCHC 30.4 g/dL (31.0-37.0); MCV 78.4 fL (80.0-100.0); Microcytosis Slight; Platelet Count 322 k/uL (150-450); RBC 4.27 m/uL (3.80-5.40); RDW 16.3 % (11.5-15.5); WBC 5.5 k/uL (3.8-10.6)
[2020-02-02 20:25] LABS: % Iron Saturation 3.53 (12.00-45.00); Ferritin 8.2 ng/mL (10.0-291.0)
== END | disposition home or self-care (01) ==
LOC: LABWHC1 12:07
PROVIDERS: ATTEND Family Medicine
DX: D64.9 Anemia, unspecified (principal)
CPT/HCPCS: 36415; 82728; 83540; 83550; 85027

== ENCOUNTER → 2020-02-04 | Outpatient (CLI) | payer OTHER ==
--- NOTE | 2020-02-06 14:28 | MR ---
EXAMINATION TYPE: MR abdomen wo/w con DATE OF EXAM: 02/04/2020 COMPARISON: CT scan 04/29/2014, [birth year]10/1962 HISTORY: Adrenal Mass CONTRAST: Standard multiplanar, multisequence MRI departmental protocol utilizing 7 mL intravenous Gadavist roman olinium contrast. FINDINGS: There is a punctate area of high signal seen within the right lobe the liver likely on the basis of a tiny simple cyst. There is slightly heterogeneous in signal correlate for hepatic steatosis or hepat ocellular disease. Liver measures 19 cm compatible with mild hepatomegaly. There is a small splenic granuloma. Kidneys are symmetric in size with no hydronephrosis or renal mass. Pancreas has a normal appearance. The gallbladder is not seen with certainty. Aorta of normal caliber. Bowel gas pattern nonspecific. No free fluid. Small hiatal hernia noted and there is global cardiomegaly. Punctate 2 mm nodule at the right lung ba se cannot be excluded by MRI of the abdomen. There is paracentral disc bulging or protrusion involvin g the lower thoracic spine on the left. Adrenal glands have a normal configuration. It does appear to be mild thickening of the white adrenal gland which is stable dating back to multiple CT scans. No diagnostic evidence of adrenal gland mass . IMPRESSION: 1. No evidence of adrenal mass. 2. Probable tiny hepatic simple cyst. 3. Splenic granuloma. 4. There is a left paracentral disc herniation involving the lower thoracic spine correlate clinicall y.
== END | disposition home or self-care (01) ==
LOC: RADMRIMAIN 15:07
PROVIDERS: ATTEND Obstetrics & Gynecology
DX: D73.89 Other diseases of spleen (principal); M51.24 Other intervertebral disc displacement, thoracic region
CPT/HCPCS: 74183; A9585

== ENCOUNTER → 2020-02-07 | Outpatient (CLI) | payer OTHER | END | disposition home or self-care (01) | CPT/HCPCS: 72197; A9585 ==

== ENCOUNTER → 2020-04-26 | Outpatient (CLI) | payer OTHER ==
[2020-04-26 12:24] LABS: Anisocytosis Slight; Basophils % (A) 1 %; Eosinophils # (A) 0.5 k/uL (0-0.7); Eosinophils % (A) 8 %; HCT 43.7 % (34.0-46.0); Lymphocytes # (A) 1.4 k/uL (1.0-4.8); Lymphocytes % (A) 26 %; MCV 90.9 fL (80.0-100.0); Mean Platelet Volume 7.3; Monocytes # (A) 0.4 k/uL (0-1.0); Monocytes % (A) 7 %; Neutrophils # (A) 2.9 k/uL (1.3-7.7); Neutrophils % (A) 54 %; Platelet Count 298 k/uL (150-450); RBC 4.81 m/uL (3.80-5.40); RDW 17.3 % (11.5-15.5); WBC 5.4 k/uL (3.8-10.6)
[2020-04-26 19:37] LABS: T4, Free (Free Thyroxine) 1.2 ng/dL (0.80-1.80)
[2020-04-26 19:39] LABS: Ferritin 25.6 ng/mL (10.0-291.0)
[2020-04-26 20:54] LABS: % Iron Saturation 21.41 (12.00-45.00); African American GFR (CKD) 98.9 (60.0-200.0); Albumin 4.6 g/dL (3.80-4.90); Anion Gap 9.6 mmol/L (4.00-12.00); BUN/Creat Ratio 22.5 Ratio (12.00-20.00); Calcium 10.1 mg/dL (8.7-10.3); Carbon Dioxide 30.4 mmol/L (21.6-31.8); Globulin 2.3 g/dL (1.6-3.3); Non-African American GFR(CKD) 85.4 (60.0-200.0); Potassium 4.1 mmol/L (3.5-5.5); Total Bilirubin 0.2 mg/dL (0.2-1.2); Total Protein 6.9 g/dL (6.2-8.2)
== END | disposition home or self-care (01) ==
LOC: LABWHC1 10:58
PROVIDERS: ATTEND Family Medicine
DX: R68.89 Other general symptoms and signs (principal); K76.9 Liver disease, unspecified; I10 Essential (primary) hypertension; R20.8 Other disturbances of skin sensation; D50.9 Iron deficiency anemia, unspecified
CPT/HCPCS: 36415; 80053; 82306; 82728; 83540; 83550; 84439; 84443; 84481; 85025

== ENCOUNTER → 2020-05-22 | Outpatient (CLI) | payer OTHER ==
--- NOTE | 2020-05-22 14:16 | MR ---
MR abdomen with and without contrast HISTORY: Mass, elevated CA-125 Multiplanar multisequence and postcontrast images through the upper abdomen following 7 cc Gadavist I V Correlation to prior MR abdomen 02/04/2020, MR pelvis 02/07/2020 The liver, spleen, adrenal glands, kidneys, and pancreas are stable. Gallbladder is not seen. There i s no ascites or retroperitoneal adenopathy. Aorta and inferior vena cava show normal caliber. No aris l obstruction. Lung bases are clear. IMPRESSION: Stable upper abdomen MRI.
== END | disposition home or self-care (01) ==
LOC: RADMRIMAIN 12:38
PROVIDERS: ATTEND Obstetrics & Gynecology
DX: R19.09 Other intra-abdominal and pelvic swelling, mass and lump (principal)
CPT/HCPCS: 74183; A9585

== ENCOUNTER → 2020-06-21 | Outpatient (CLI) | payer OTHER ==
--- NOTE | 2020-06-23 03:42 | MR ---
EXAMINATION TYPE: MR pelvis wo/w con DATE OF EXAM: 06/21/2020 COMPARISON: 02/07/2020 HISTORY: Evaluate cysts CONTRAST: Standard multiplanar, multisequence MRI departmental protocol utilizing 7 mL intravenous Gadavist orman olinium contrast. Uterus is anteverted. There are multiple small cervical cysts posteriorly. There is no evidence of en dometrial mass. Endometrium not enlarged. There is 3.2 cm rounded mass on the posterior uterine fundus consistent with subserosal fibroid that appears unchanged compared to old exam. There are multiple bilateral ovarian cysts. Some of the cysts have lower signal on T2 images that sug gests some hemorrhagic component. There is rounded 3.5 cm cystic area with low signal on T2 images no t changed in size compared to previous exam and consistent with hemorrhagic cyst. There appears to be small amount of free fluid in the pelvis around the cysts. This appears unchanged. There is a domina nt cyst on the left side that measures 3.3 cm which had some mixed signal internal echogenicity on th e posterior aspect on the old exam and is not seen on today's exam. I see no pathologic enhancement o f the cysts. IMPRESSION: Multiple bilateral ovarian cysts with some complex features appear not adversely changed compared to old exam. No emerging suspicious solid component. Uterine fundal fibroid seen posteriorly unchanged. There is small amount of free fluid in the pelvis unchanged.
== END | disposition home or self-care (01) ==
LOC: RADMRIMAIN 12:05
PROVIDERS: ATTEND Obstetrics & Gynecology
DX: N83.201 Unspecified ovarian cyst, right side (principal); N83.202 Unspecified ovarian cyst, left side; D25.9 Leiomyoma of uterus, unspecified; R97.1 Elevated cancer antigen 125 [CA 125]
CPT/HCPCS: 72197; A9585

== ENCOUNTER → 2020-09-20 | Outpatient (CLI) | payer OTHER ==
[2020-09-20 08:16] VITALS: BP 137/82; PULSE 81; RESP 16; TEMP 98.6
--- NOTE | 2020-09-20 09:23 | P.HPOB ---
History of Present Illness H&P Date: 09/20/20 Chief Complaint: The patient is here for her routine gynecologic exam and ma mmogram. This is a 50-year-old G0 with an LMP of late July 2020. Last year the patient underwent a pelvic ultrasound because of a uterine enlargement and is found to have a uterine fibroid which explained the uterine enlargement. Also a 5.5cm complex left ovarian cyst was noted. The patient was referred to Dr. Mccurdy for the mass. The patient was started on Orlissa for possible endometrios is. The patient was on this from December to April 2020. It was discontinued after she started having blood pressure elevations. Menses were less frequent and irregular on Orlissa. She was also found have an elevated CA-125 tests in the patient states it was 231. [facility] [place] She had an MRI which showed bilateral complex ovarian cysts. These were thought to probably represent endometriosis, but there was talk of doing some type of surgery to confirm that it was endometriosis and not cancer. Because of the Covid pandemic, the surgery was delayed. Later in the summer of 2019 the decision was made to repeat the MRI instead of doing surgery. MRIs were done in January and again in April and May. The MRI done in January showed a 4.0 cm uterine fibroid, 4.3 cm complex left ovarian cyst and multiple right ovarian cysts including 2 possible hemorrhagic cysts and the largest measured 3.2 cm. She states the CA-125 test which was repeated decreased into the 80s. After the Orlissa was discontinued, she states her menstrual periods became regular every month lasting 6-7 days. She did have hot flashes while on Orlissa, but they stopped shortly after it was discontinued. Review of Systems The patient's weight has been stable over the last year. She denies respiratory, cardiac, or G.I. problems. Past Medical History Past Medical History: Hypertension Additional Past Medical History / Comment(s): possible TIA in 2012, heavy menstral cycles resulting in chronic anemia, esophageal stricture per GI doc does not require intervention at this time, multiple UTI's. 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 She had a 3.3 cm fibroid in 2010. History of endometriosis. History of Any Multi-Drug Resistant Organisms: None Reported Past Surgical History: Cholecystectomy Additional Past Surgical History / Comment(s): colonoscopy 2013(next after 10yr) Past Anesthesia/Blood Transfusion Reactions: No Reported Reaction Past Psychological History: No Psychological Hx Reported Smoking Status: Never smoker Past Alcohol Use History: None Reported Past Drug Use History: None Reported Additional History: The patient is single and has never been sexually active. 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 - Past Family History Father Family Medical History: Cancer, Diabetes Mellitus Additional Family Medical History / Comment(s): Skin cancer. Mother Family Medical History: Myocardial Infarction ([place]) Medications and Allergies Home Medications Medication Instructions Recorded Confirmed Type Ferrous Sulfate [Iron (65 MG 325 mg PO DAILY 02/09/16 09/20/20 History Elemental)] Lisinopril-Hctz 10-12.5 mg 1 tab PO DAILY 02/09/16 09/20/20 History [Zestoretic 10-12.5] Pantoprazole [Protonix] 40 mg PO OSCAR-BRKFST #30 tablet. 02/11/16 09/20/20 Rx Cholecalciferol (Vitamin D3) 2,000 unit PO DAILY 09/14/19 09/20/20 History [Vitamin D3] Ibuprofen [Motrin] 400 mg PO Q6HR PRN 09/14/19 09/20/20 History Allergies Allergy/AdvReac Type Severity Reaction Status Date / Time ANTIBIOTIC FOR UTI Allergy Mild Itching Uncoded 09/20/20 08:09 Exam Vital Signs Temp Pulse Resp BP Pulse Ox 09/20/20 08:10 98.6 F 81 16 137/82 96 Intake and Output 09/19/20 09/20/20 09/20/20 22:59 06:59 14:59 Other: Weight 73.482 kg Height 5 feet 2-1/2 inches, weight 162 pounds, BMI 29.2. This is a well-developed well-nourished white female who is alert and oriented times 3 in no acute distress. HEENT: Within normal limits. NECK: Supple without mass or thyromegaly. CHEST AND LUNGS: Clear to auscultation. HEART: Regular rate and rhythm. BREASTS: There is what appears to be a lipoma measuring approximately 8 x 9 cm in the right axillary region adjacent to the right breast. This is soft and nontender. There are no palpable masses within this region. The rest of the breast exam is unremarkable. There are no palpable masses or tenderness. AXILLARY EXAM: Negative for adenopathy. BACK: Negative for CVA tenderness. ABDOMEN: Soft, nontender, without palpable masses. PELVIC EXAM: Normal external genitalia with a virginal introitus allowing a single digit or small speculum only. Cervix and vagina appear normal []. There is no unusual discharge. There is no evidence of prolapse. The uterus is midposition, approximately 10 week size and firm consistent with a fibroid uterus. The uterus is nontender. There are no palpable adnexal masses or tenderness. RECTAL EXAM: Rectovaginal exam is negative for mass or tenderness and is negative for occult blood. EXTREMITIES: Nontender. IMPRESSION: 1. 50-year-old premenopausal female with a fibroid uterus approximately 10 weeks size. There is a 4.0 cm fibroid by MRI. 2. Bilateral ovarian cysts that have been suspected to be endometriosis cysts. This is being followed by Dr. Brooke at, was instituted in [place]. This is being followed with serial MRIs and the patient states she is scheduled for another MRI in January 2021. PLAN: 1. Pap smear was deferred since she had a normal one on 09/14/2019. 2. Self breast awareness was discussed with the patient. 3. Mammogram was done today. I have reviewed the preliminary mammogram and this seems to be accessory breast tissue in the right axillary region with no suspicious findings. When I was initially calling a lipoma probably represents accessory breast tissue. The final mammogram report is pending. 4. The patient will continue to follow up with for the ovarian cysts which are being followed with serial MRIs. 5. She was advised to return in one year for her annual well woman exam and as needed.
--- NOTE | 2020-09-22 12:20 | MM ---
Reason for exam: screening (asymptomatic). Last mammogram was performed 1 year ago. History: Patient is nulliparous. Physical Findings: A clinical breast exam by your physician is recommended on an annual basis and results should be correlated with mammographic findings. MG 3D Screening Mammo W/Cad Bilateral CC, MLO, and XCCL view(s) were taken. Prior study comparison: September 14, 2019, bilateral MG screening mammo w CAD. May 13, 2018, bilateral MG 3d diag mammo w/cad KASSANDRA. The breast tissue is heterogeneously dense. This may lower the sensitivity of mammography. Finding: There are typically benign skin calcifications in both breasts. No significant changes in finding since September 14, 2019 and May 13, 2018. ASSESSMENT: Benign, BI-RAD 2 RECOMMENDATION: Routine screening mammogram of both breasts in 1 year.
== END | disposition home or self-care (01) ==
LOC: WWCWWP 08:02
PROVIDERS: ATTEND Obstetrics & Gynecology
DX: Z12.31 Encounter for screening mammogram for malignant neoplasm of breast (principal)
CPT/HCPCS: 77063; 77067

== ENCOUNTER → 2021-01-29 | Outpatient (CLI) | payer OTHER ==
--- NOTE | 2021-01-30 07:03 | MR ---
EXAMINATION TYPE: MR pelvis wo/w con DATE OF EXAM: 01/29/2021 3:57 PM COMPARISON: Prior pelvic MRIs June 21, 2020 and February 07, 2020. HISTORY: Check up on Ovarian Cysts TECHNIQUE: Multiplanar multiecho imaging of the pelvis was performed without and subsequently with i ntravenous contrast. Contrast used was 7.0 mL of Gadavist. FINDINGS: FINDINGS: Uterus redemonstrated heterogeneous in appearance and anteverted in shape with no suspiciou s endometrial thickening. Junctional zone felt upper limits of normal measuring up to 10 mm. There is fluid within endometrial canal of slight more prominence on current study. If the patient is postmen opausal, abnormal etiology must be considered. Arcuate configuration redemonstrated on axial images. There are multiple tiny nabothian cysts in the cervix along cranial aspect redemonstrated. There is s uperior subserosal fibroid bulging the superior margin measuring 3.3 cm craniocaudal dimension by 4.1 cm transversely by 3.1 cm AP diameter sagittal image 25 and axial image 25. No free fluid seen in pe lvic cul-de-sac. Both ovaries redemonstrated somewhat prominent size with bilateral cystic change. Few lesions have T1 hypointensity and T2 hyperintensity, larger lesions have T1 hyperintensity and T2 hypointensity in t he current study. Lesions up to roughly 2.7 cm cm seen bilaterally. Suspect proteinaceous or hemorrha gic cysts. No suspicious thickened septa or enhancing nodularity identified. L No suspicious small or large bowel dilatation. Urinary bladder thought is poorly distended. No suspic ious pelvic adenopathy. Visualized osseous structures are intact. IMPRESSION: Prominent bilateral ovaries with persistent nonsimple cysts bilaterally, suspect proteina ceous and/or hemorrhagic cysts. There is continued change from prior studies suggesting benign etiolo gy.
== END | disposition home or self-care (01) ==
LOC: RADMRIMAIN 14:37
PROVIDERS: ATTEND Obstetrics & Gynecology
DX: N83.292 Other ovarian cyst, left side (principal); N83.291 Other ovarian cyst, right side
CPT/HCPCS: 72197; A9585

== ENCOUNTER 2021-05-12 11:17 | Emergency (ER) | payer OTHER ==
[2021-05-12] MEDS ORDERED: RABIES VACCINE (PCEC) 2.5 UNIT KIT IM ONE (11:51)
[2021-05-12] MEDS ORDERED: DIPH,PERTUS(ACELL)TETVAC-LF 0.5 ML VIAL IM ONE (11:51)
[2021-05-12] MEDS ORDERED: AMOXIC-POT CLAV 875MG STARTER PACK 2 TAB BTL PO STA (11:51)
[2021-05-12] MEDS ORDERED: RABIES IMMUNE GLOB 300 UNIT/ML 1 ML VIAL IM ONE (11:51)
[2021-05-12] MEDS ORDERED: RABIES IMMUNE GLOB 300 UNIT/ML 5 ML VIAL IM ONE (12:00)
--- NOTE | 2021-05-12 12:04 | ED ---
General Adult HPI - General Chief complaint: Animal Bite Stated complaint: racoon bite Time Seen by Provider: 05/12/21 11:23 Source: patient, RN notes reviewed Mode of arrival: ambulatory Limitations: no limitations - History of Present Illness Initial comments: 50-year-old female presents to the emergency room for a chief complaint of raccoon bite to the right heel. Patient states that she feeds her raccoon's live in her barn everyday between 5 and 8 PM. Patient states it bit her on the heel. States this raccoon is about 8-9 weeks old. Patient reports she talked to her doctor who recommended she come in given rabies risk. Patient is not up-to-date on tetanus.Patient has no other complaints at this time including shortness of breath, chest pain, abdominal pain, nausea or vomiting, headache, or visual changes. - Related Data Home Medications Medication Instructions Recorded Confirmed Ferrous Sulfate [Iron (65 MG 325 mg PO DAILY 02/09/16 09/20/20 Elemental)] Lisinopril-Hctz 10-12.5 mg 1 tab PO DAILY 02/09/16 09/20/20 [Zestoretic 10-12.5] Cholecalciferol (Vitamin D3) 2,000 unit PO DAILY 09/14/19 09/20/20 [Vitamin D3] Ibuprofen [Motrin] 400 mg PO Q6HR PRN 09/14/19 09/20/20 Previous Rx's Medication Instructions Recorded Pantoprazole [Protonix] 40 mg PO AC-BRKFST #30 tablet. 02/11/16 Amoxicillin/Potassium Clav 1 tab PO Q12HR #20 tab 05/12/21 [Augmentin 875-125 Tablet] Allergies Allergy/AdvReac Type Severity Reaction Status Date / Time ANTIBIOTIC FOR UTI Allergy Mild Itching Uncoded 05/12/21 11:21 Review of Systems ROS Statement: Those systems with pertinent positive or pertinent negative responses have been documented in the HPI. ROS Other: All systems not noted in ROS Statement are negative. Past Medical History Past Medical History: Hypertension Additional Past Medical History / Comment(s): possible TIA in 2012, heavy menstral cycles resulting in chronic anemia, esophageal stricture per GI doc does not require intervention at this time, multiple UTI's. 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 She had a 3.3 cm fibroid in 2010. History of endometriosis. History of Any Multi-Drug Resistant Organisms: None Reported Past Surgical History: Cholecystectomy Additional Past Surgical History / Comment(s): colonoscopy 2013(next after 10yr) Past Anesthesia/Blood Transfusion Reactions: No Reported Reaction Past Psychological History: No Psychological Hx Reported Smoking Status: Never smoker Past Alcohol Use History: None Reported Past Drug Use History: None Reported - Past Family History Father Family Medical History: Cancer, Diabetes Mellitus Additional Family Medical History / Comment(s): Skin cancer. Mother Family Medical History: Myocardial Infarction ([place]) General Exam Limitations: no limitations General appearance: alert, in no apparent distress Head exam: Present: atraumatic Eye exam: Present: normal appearance, PERRL, EOMI. Absent: scleral icterus, conjunctival injection, periorbital swelling ENT exam: Present: normal exam, mucous membranes moist Neck exam: Present: normal inspection. Absent: tenderness, meningismus, lymphadenopathy Respiratory exam: Present: normal lung sounds bilaterally. Absent: respiratory distress, wheezes, rales, rhonchi, stridor Cardiovascular Exam: Present: regular rate, normal rhythm, normal heart sounds. Absent: systolic murmur, diastolic murmur, rubs, gallop, clicks Extremities exam: Present: other (Small puncture wound noted in the right lateral posterior heal ) Course Vital Signs 05/12/21 11:19 Temperature 97.9 F Pulse Rate 83 Respiratory 19 Rate Blood Pressure 158/88 O2 Sat by Pulse 99 Oximetry Medical Decision Making - Medical Decision Making Patient has small wound on the back of the heel. This was irrigated. 3 mL rabies immune globulin injected around the wound. the rest injected by RN along with vaccine. She is started on Augmentin and discussed risks of infection. Also updated on tetanus. She will follow up with her doctor. She will return for any worsening symptoms. Patient was written a prescription to continue the rabies series. Disposition Clinical Impression: Raccoon bite Disposition: HOME SELF-CARE Condition: Good Instructions (If sedation given, give patient instructions): Animal Bite (ED) Additional Instructions: Please take antibiotic as directed. Keep wound clean. Follow-up with your doctor. Return to the emergency room for any worsening symptoms. Prescriptions: Amoxicillin/Potassium Clav [Augmentin 875-125 Tablet] 1 tab PO Q12HR #20 tab Is patient prescribed a controlled substance at d/c from ED?: No Referrals: Jorje Lagunas DO [Primary Care Provider] - 1-2 days Time of Disposition: 12:03
[2021-05-12 12:53] VITALS: BP 170/106; PULSE 70; RESP 18; TEMP 97.2
== END 2021-05-12 13:02 | disposition home or self-care (01) ==
LOC: EC 11:17
DX: S91.351A Open bite, right foot, initial encounter (principal); W55.51XA Bitten by raccoon, initial encounter; I10 Essential (primary) hypertension; Z90.49 Acquired absence of other specified parts of digestive tract; Z23 Encounter for immunization
CPT/HCPCS: 90375; 90471; 90675; 90715; 96372; 99282

== ENCOUNTER 2021-08-02 13:46 | Emergency (ER) | payer OTHER ==
[2021-08-02 14:08] VITALS: TEMP 98.3
--- NOTE | 2021-08-02 15:24 | ED ---
Skin/Abscess/FB HPI - General Chief complaint: Skin/Abscess/Foreign Body Stated complaint: Racoon Bite on Lt Knee Source: patient, RN notes reviewed Mode of arrival: ambulatory Limitations: no limitations - History of Present Illness Initial comments: Well-appearing 51-year-old white female, presents to the emergency room with complaints of being scratched by her neighborhood friendly raccoon yesterday on her left knee. Patient states that there was no bleeding however the skin was slightly broken. She did wash it and put some ointment on it however she's been on the website it was recommended that she get rabies vaccine. Patient was scratched in the past and she received rabies immunoglobulin and vaccine in April of this year with her last dose being May 26 of this year. She is concerned that she may need a repeat rabies vaccine as she has been looking it up on the CDC website. complaint: other (Minor abrasion left knee) -: days(s) (1) Tetanus Up to Date: yes Location: LLE (Knee) Severity scale (1-10): 0 Improves with: none Associated symptoms: denies other symptoms Treatments Prior to Arrival: other (Ointment and cleansed at home) - Related Data Home Medications Medication Instructions Recorded Confirmed Ferrous Sulfate [Iron (65 MG 325 mg PO DAILY 02/09/16 05/15/21 Elemental)] Lisinopril-Hctz 10-12.5 mg 1 tab PO DAILY 02/09/16 05/15/21 [Zestoretic 10-12.5] Cholecalciferol (Vitamin D3) 2,000 unit PO DAILY 09/14/19 05/15/21 [Vitamin D3] Ibuprofen [Motrin] 400 mg PO Q6HR PRN 09/14/19 05/15/21 Previous Rx's Medication Instructions Recorded Pantoprazole [Protonix] 40 mg PO AC-BRKFST #30 tablet. 02/11/16 Amoxicillin/Potassium Clav 1 tab PO Q12HR #20 tab 05/12/21 [Augmentin 875-125 Tablet] Fluconazole [Diflucan] 150 mg PO DIRECTED #2 tab 05/29/21 Allergies Allergy/AdvReac Type Severity Reaction Status Date / Time ANTIBIOTIC FOR UTI Allergy Mild Itching Uncoded 08/02/21 14:09 Review of Systems ROS Statement: Those systems with pertinent positive or pertinent negative responses have been documented in the HPI. ROS Other: All systems not noted in ROS Statement are negative. Past Medical History Past Medical History: Hypertension Additional Past Medical History / Comment(s): possible TIA in 2012, heavy menstral cycles resulting in chronic anemia, esophageal stricture per GI doc does not require intervention at this time, multiple UTI's. 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 She had a 3.3 cm fibroid in 2010. History of endometriosis. History of Any Multi-Drug Resistant Organisms: None Reported Past Surgical History: Cholecystectomy Additional Past Surgical History / Comment(s): colonoscopy 2013(next after 10yr) Past Anesthesia/Blood Transfusion Reactions: No Reported Reaction Past Psychological History: No Psychological Hx Reported Smoking Status: Never smoker Past Alcohol Use History: None Reported Past Drug Use History: None Reported - Past Family History Father Family Medical History: Cancer, Diabetes Mellitus Additional Family Medical History / Comment(s): Skin cancer. Mother Family Medical History: Myocardial Infarction ([place]) General Exam Limitations: no limitations General appearance: alert, in no apparent distress Head exam: Present: atraumatic, normocephalic, normal inspection Eye exam: Present: normal appearance, PERRL, EOMI. Absent: scleral icterus, conjunctival injection, periorbital swelling Neck exam: Present: normal inspection, full ROM. Absent: tenderness, meningismus, lymphadenopathy Extremities exam: Present: normal inspection, full ROM, normal capillary refill. Absent: tenderness, pedal edema, joint swelling, calf tenderness Neurological exam: Present: alert, oriented X3, CN II-XII intact Psychiatric exam: Present: normal affect, normal mood Skin exam: Present: warm, dry, intact, normal color, abrasion (Minor, barely visible abrasion left knee). Absent: rash Course Vital Signs 08/02/21 08/02/21 14:03 16:14 Temperature 98.3 F 98.3 F Pulse Rate 75 57 L Respiratory 20 18 Rate Blood Pressure 155/72 158/94 O2 Sat by Pulse 99 99 Oximetry Medical Decision Making - Medical Decision Making Patient states that her tetanus and rabies vaccination is up-to-date. She states that she had a postexposure prophylaxis in April and May of this year. She states that this was a scratch from one of the neighborhood raccoons that she regularly feeds. She did wash the wound yesterday. She has done research and found that she needs another series. Per the CDC it is recommended after postexposure and previously immunized, patient should receive the vaccine on day 0 and on day 3. I believe this is a very low risk injury as I am unable to see broken skin on the patient's knee however she is concerned that the medication was provided. Patient was advised of this and directed to return on day 3. Case was discussed with Dr. Paulson. Disposition Clinical Impression: Rabies, need for prophylactic vaccination against Disposition: HOME SELF-CARE Condition: Good Additional Instructions: Please return on day 3, August 05, 2021 for a second dose vaccine. Return to the emergency room with any new or worsening symptoms or signs of infection. Is patient prescribed a controlled substance at d/c from ED?: No Referrals: Jorje Lagunas DO [Primary Care Provider] - 1-2 days Time of Disposition: 15:24
[2021-08-02] MEDS ORDERED: RABIES VACCINE (PCEC) 2.5 UNIT KIT IM ONE (15:45)
[2021-08-02 16:20] VITALS: BP 158/94; PULSE 57; RESP 18
== END 2021-08-02 16:14 | disposition home or self-care (01) ==
LOC: EC 13:46
DX: S80.211A Abrasion, right knee, initial encounter (principal); Z20.3 Contact with and (suspected) exposure to rabies; I10 Essential (primary) hypertension; Z83.3 Family history of diabetes mellitus; Z79.899 Other long term (current) drug therapy; W55.52XA Struck by raccoon, initial encounter
CPT/HCPCS: 90471; 90675; 99283

== ENCOUNTER → 2021-08-05 | Outpatient (CLI) | payer OTHER ==
[~2021-08-05] MED LIST: RABIES VACCINE (PCEC) 2.5 UNIT KIT IM ONE
== END ==
LOC: PROCWHC3 08:32
PROVIDERS: ATTEND Nurse Practitioner Family
DX: Z23 Encounter for immunization (principal); Z20.3 Contact with and (suspected) exposure to rabies
CPT/HCPCS: 90471; 90675

== ENCOUNTER → 2021-09-25 | Outpatient (CLI) | payer OTHER ==
--- NOTE | 2021-09-27 10:53 | MM ---
Reason for exam: screening (asymptomatic). Last mammogram was performed 1 year ago. History: Patient is nulliparous. Physical Findings: A clinical breast exam by your physician is recommended on an annual basis and results should be correlated with mammographic findings. MG 3D Screening Mammo W/Cad Bilateral CC and MLO view(s) were taken. Prior study comparison: September 20, 2020, bilateral MG 3d screening mammo w/cad. September 14, 2019, bilateral MG screening mammo w CAD. May 13, 2018, bilateral MG 3d diag mammo w/cad KASSANDRA. The breast tissue is heterogeneously dense. This may lower the sensitivity of mammography. Posterior superior nodularity right MLO view. ASSESSMENT: Incomplete: need additional imaging evaluation, BI-RAD 0 RECOMMENDATION: Special view mammogram of the right breast. (3D) If lesion persists on supplemental views, image directed ultrasound is recommended. [facility] will attempt to contact patient to return for supplemental views and ultrasound if indicated.
== END ==
LOC: WWCWWP 11:20
PROVIDERS: ATTEND Obstetrics & Gynecology
DX: Z12.31 Encounter for screening mammogram for malignant neoplasm of breast (principal); Z88.1 Allergy status to other antibiotic agents
CPT/HCPCS: 77063; 77067

== ENCOUNTER → 2021-09-28 | Outpatient (CLI) | payer OTHER ==
--- NOTE | 2021-09-28 12:12 | MM ---
Reason for exam: additional evaluation requested from abnormal screening. Last mammogram was performed less than 1 month ago. History: Patient is nulliparous. Physical Findings: Nurse did not find any significant physical abnormalities on exam. MG 3D Work Up W/Cad RT Spot compression MLO and XCCL view(s) were taken of the right breast. Prior study comparison: September 25, 2021, bilateral MG 3d screening mammo w/cad. September 20, 2020, bilateral MG 3d screening mammo w/cad. The breast tissue is heterogeneously dense. This may lower the sensitivity of mammography. Finding: There is a typically benign equal density (isodense), indistinct irregular mass located 10 cm from the nipple in the upper quadrant, middle position of the right breast. These results were verbally communicated with the patient and result sheet given to the patient on 09/28/21. ASSESSMENT: Incomplete: need additional imaging evaluation, BI-RAD 0 RECOMMENDATION: Ultrasound of the right breast.
--- NOTE | 2021-09-28 12:15 | USB ---
Reason for exam: additional evaluation requested from abnormal screening. History: Patient is nulliparous. US Breast Workup Limited RT Right limited breast ultrasound including focal area of concern, retroareolar and axilla demonstrates no cystic or solid lesion seen. These results were verbally communicated with the patient and result sheet given to the patient on 09/28/21. ASSESSMENT: Negative, BI-RAD 1 RECOMMENDATION: Follow-up diagnostic mammogram of the right breast in 6 months.
== END | disposition home or self-care (01) ==
LOC: RADMAMWWP 07:36
PROVIDERS: ATTEND Obstetrics & Gynecology
DX: N63.21 Unspecified lump in the left breast, upper outer quadrant (principal)
CPT/HCPCS: 77065; 76642; G0279; 77061

== ENCOUNTER → 2021-10-02 | Outpatient (CLI) | payer OTHER ==
[2021-10-02 13:34] VITALS: BP 143/82; PULSE 66; RESP 18; TEMP 98.3
--- NOTE | 2021-10-02 16:50 | P.HPOB ---
History of Present Illness H&P Date: 10/02/21 Chief Complaint: The patient is here for her routine gynecologic exam. This is a 51-year-old G0 with an LMP of 09/25/2021. The patient has had intermittent occasional pelvic discomfort and has been followed for a pelvic mass since 2018. She was found to have a fibroid uterus and a complex left ovarian cyst. The patient was initially referred to Dr. Mccurdy and because her CA-125 test was elevated at 231, she was referred to Dr. Brooke, the gynecologic oncologist at [facility]. Initially the plan was to do surgery to determine the exact nature of the mass, however because of the Covid pandemic, the surgery scheduled for spring was postponed. The decision was then made to follow the mass conservatively without surgery and serial MRIs were planned. The patient's CA-125 test has decreased into the 80s. Her last MRI was in January 2021 with the patient. She has an appointment to see Dr. Brooke next week. The patient does have mild hot flashes, but she states they are not as bad as when she took Orlissa for 3 months for suspected endometriosis from December to April 2020. Review of Systems The patient has gained 5 pounds over the last year. She denies respiratory, cardiac, or G.I. problems. Past Medical History Past Medical History: Hypertension Additional Past Medical History / Comment(s): possible TIA in 2012, heavy menstral cycles resulting in chronic anemia, esophageal stricture per GI doc does not require intervention at this time, multiple UTI's. 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 She had a 4.2 cm fibroid in 2018. History of endometriosis. History of Any Multi-Drug Resistant Organisms: None Reported Past Surgical History: Cholecystectomy Additional Past Surgical History / Comment(s): colonoscopy 2013(next after 10yr) Past Anesthesia/Blood Transfusion Reactions: No Reported Reaction Past Psychological History: No Psychological Hx Reported Smoking Status: Never smoker Past Alcohol Use History: None Reported Past Drug Use History: None Reported Additional History: The patient is single and has never been sexually active. 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 - Past Family History Father Family Medical History: Cancer, Diabetes Mellitus Additional Family Medical History / Comment(s): Skin cancer. Mother Family Medical History: Myocardial Infarction ([place]) Medications and Allergies Home Medications Medication Instructions Recorded Confirmed Type Ferrous Sulfate [Iron (65 MG 325 mg PO DAILY 02/09/16 10/02/21 History Elemental)] Lisinopril-Hctz 10-12.5 mg 1 tab PO DAILY 02/09/16 10/02/21 History [Zestoretic 10-12.5] Cholecalciferol (Vitamin D3) 2,000 unit PO DAILY 09/14/19 10/02/21 History [Vitamin D3] Ibuprofen [Motrin] 400 mg PO Q6HR PRN 09/14/19 10/02/21 History Multivit-Min/Iron/Folic/Lutein 1 each PO DAILY 10/02/21 10/02/21 History [Centrum Silver Women Tablet] Allergies Allergy/AdvReac Type Severity Reaction Status Date / Time ANTIBIOTIC FOR UTI Allergy Mild Itching Uncoded 10/02/21 13:25 Exam Vital Signs Temp Pulse Resp BP Pulse Ox 10/02/21 13:27 98.3 F 66 18 143/82 99 Intake and Output 10/02/21 10/02/21 10/02/21 06:59 14:59 22:59 Other: Weight 75.75 kg Height 5 feet 2 inches, weight 167 pounds, BMI 30.5. This is a well-developed well-nourished white female who is alert and oriented times 3 in no acute distress. HEENT: Within normal limits. NECK: Supple without mass or thyromegaly. CHEST AND LUNGS: Clear to auscultation. HEART: Regular rate and rhythm. BREASTS: Are without mass or discharge. AXILLARY EXAM: Negative for adenopathy. There is a stable lipoma in the region of the left axilla measuring approximately 8 x 9 cm. This is nontender and noninflamed. BACK: Negative for CVA tenderness. ABDOMEN: Soft, nontender, without palpable masses. PELVIC EXAM: Normal external genitalia with a virginal introitus which allows a single digit or a small Graves speculum to be inserte. Cervix and vagina appear normal. There is no unusual discharge. There is no evidence of prolapse. The uterus is midposition, approximately 10-12 weeks size and nontender. There is fullness in the left adnexal region which is difficult to measure a discrete mass. RECTAL EXAM: Rectovaginal exam is negative for mass or tenderness and is negative for occult blood. EXTREMITIES: Nontender. IMPRESSION: 1. 51-year-old virginal premenopausal female with uterine enlargement and suspected persistent left adnexal mass. The left adnexal mass has been followed conservatively by [facility] [place]. This is been followed with MRI testing and CA-125 testing. The patient is scheduled to see this next week. 2. Known fibroid uterus. PLAN: 1. Pap smear cotest was performed. 2. Self breast awareness was discussed with the patient. We have also discussed symptoms associated with inflammatory breast cancer. 3. She will follow-up with Dr. Brooke next week and they will make a decision on whether surgery is indicated or if the mass will continue to be followed conservatively. According to the patient's understanding, Dr. Brooke believes that mass most likely represents an endometrioma. The patient has been told several times that a more definitive diagnosis can only be made surgically. She will discuss the options with Dr. Brooke at her appointment next week. 4. Mammogram was recently done which did require a right breast workup. 6 month right diagnostic mammogram was recommended and the order slip was given to the patient for this. 5. She was advised to return in one year for her annual well woman exam and as needed.
== END ==
LOC: WWCWWP 13:18
PROVIDERS: ATTEND Obstetrics & Gynecology
DX: D25.9 Leiomyoma of uterus, unspecified (principal); I10 Essential (primary) hypertension; Z79.899 Other long term (current) drug therapy; Z88.1 Allergy status to other antibiotic agents

== ENCOUNTER → 2021-12-09 | Outpatient (CLI) | payer OTHER ==
--- NOTE | 2021-12-10 06:48 | MR ---
EXAMINATION TYPE: MR pelvis wo/w con DATE OF EXAM: 12/09/2021 COMPARISON: HISTORY: Follow-up on ovarian cyst and elevated CA 125. CONTRAST: Standard multiplanar, multisequence MRI departmental protocol images were obtained without contrast a nd with 7.5 mL intravenous Gadavist gadolinium contrast. Uterus is anteverted and measures 8.6 cm. There are multiple rounded low signal foci in the uterine w all consistent with multiple fibroids. The largest measures 2.5 cm on the posterior uterine fundus. There is a sharply marginated 2.4 cm cyst on the left ovary. There is 3 cm cyst on the right ovary. T here is no evidence for solid adnexal mass. There is no free fluid in the pelvis. There is no endomet rial mass. The bladder distends smoothly. The lower lumbar spine is intact. Sacrum and coccyx appear intact. IMPRESSION: Bilateral ovarian cysts. No solid adnexal mass. The ovary cysts appear not significantly different th an old exam. Multiple uterine fibroids without change.
== END | disposition home or self-care (01) ==
LOC: RADMRIMAIN 10:29
PROVIDERS: ATTEND Obstetrics & Gynecology
DX: N83.202 Unspecified ovarian cyst, left side (principal); N83.201 Unspecified ovarian cyst, right side; D25.9 Leiomyoma of uterus, unspecified
CPT/HCPCS: 72197; A9585

== ENCOUNTER → 2022-02-08 | Outpatient (CLI) | payer OTHER ==
--- NOTE | 2022-02-08 15:13 | CT ---
EXAMINATION TYPE: CT heart w calcium score DATE OF EXAM: 02/08/2022 COMPARISON: None. HISTORY: Screening for cardiovascular disorder. 213.9. Elevated heart rate. Family history of coronar y artery disease. Atherosclerotic heart disease. CT DLP: 67.2 mGycm Automated exposure control for dose reduction was used. CT CALCIUM SCORING Coronary calcium is a marker for plaque (fatty deposits) in a blood vessel or atherosclerosis (harden ing of the arteries). The presence and amount of calcium detected in a coronary artery by the CT sca n, indicates the presence and amount of atherosclerotic plaque. These calcium deposits appear years before the development of heart disease symptoms such as chest pain and shortness of breath. A calcium score is computed for each of the coronary arteries based upon the volume and density of th e calcium deposits. This can be referred to as your calcified plaque burden. It does not correspond directly to the percentage of narrowing in the artery but does correlate with the severity of the un derlying coronary atherosclerosis. PROCEDURE TECHNIQUE - Prospective Gating was used. Slice thickness: 3mm. Density threshold (HU): 130, Pixel threshold: 3, Algorithm: discrete. RESULTS Region: LM Calcium Score (Agatston): 0 Volume (mm3): 0 Mass (g): 0 Region: RCA Calcium Score (Agatston): 0 Volume (mm3): 0 Mass (g): 0 Region: LAD Calcium Score (Agatston): 0 Volume (mm3): 0 Mass (g): 0 Region: CX Calcium Score (Agatston): 0 Volume (mm3): 0 Mass (g): 0 Region: PDA Calcium Score (Agatston): 0 Volume (mm3): 0 Mass (g): 0 TOTAL CALCIUM SCORE: 0 Incidental findings: Calcified right hilar and subcarinal lymph nodes along with superior splenic sahra cification consistent with product of old granulomatous disease. Mild left basilar linear scarring an d/or atelectasis. Cholecystectomy clips noted on localizer. IMPRESSION: Calcium Score: 0 Implication: No identifiable plaque. Risk of Coronary Artery Disease: Very low, generally less than 5%. CALCIUM SCORE IMPLICATION RISK OF C ORONARY ARTERY DISEASE 0 No identifiable plaque Very low, generally less than 5% 1-10 Minimal identifiable plaque Very unlikely, less than 10% 11-100 Definite, at least mild atherosclerotic plaque Mild or m inimal coronary narrowings likely 101-400 Definite, at least moderate atherosclerotic plaque Mild coronary ar katy disease highly likely, significant narrowing possible 401 or Higher Extensive atherosclerotic plaque High lik elihood of at least one significant coronary narrowing
== END | disposition home or self-care (01) ==
LOC: RADCTMAIN 14:22
PROVIDERS: ATTEND Internal Medicine Cardiovascular Disease
DX: Z13.6 Encounter for screening for cardiovascular disorders (principal); Z82.49 Family history of ischemic heart disease and other diseases of the circulatory system
CPT/HCPCS: 75571

== ENCOUNTER → 2022-04-09 | Outpatient (CLI) | payer OTHER ==
--- NOTE | 2022-04-10 09:32 | MM ---
Reason for Exam: Additional evaluation requested from prior study. Last screening mammogram was performed 6 month(s) ago. Patient History: Menarche at age 11. Patient has no children. Perimenopausal. Last menstrual period: 09/24/2021 Risk Values: Laura 5 year model risk: 1.2%. NCI Lifetime model risk: 9.4%. Film Views: Right CC views were taken. Right MLO views were taken. Prior Study Comparison: 09/20/2020 Bilateral Screening Mammogram, [facility]. 09/25/2021 Bilateral Screening Mammogram, [facility]. 09/28/2021 Right Diagnostic Mammogram, [facility]. Tissue Density: Right: The breast tissue is heterogeneously dense. This may lower the sensitivity of mammography. Findings: Analyzed By CAD. Unchanged asymmetric density posterior superior MLO view for 6 months. Continued follow up recommended. These results were verbally communicated with the patient at the time of exam. Overall Assessment: Probably benign, BI-RAD 3 Management: Diagnostic Mammogram of both breasts in 6 months.
== END | disposition home or self-care (01) ==
LOC: RADMAMWWP 10:57
PROVIDERS: ATTEND Obstetrics & Gynecology
DX: R92.8 Other abnormal and inconclusive findings on diagnostic imaging of breast (principal)
CPT/HCPCS: 77065; G0279; 77061

== ENCOUNTER → 2022-06-29 | Outpatient (CLI) | payer OTHER ==
--- NOTE | 2022-06-30 04:33 | MR ---
EXAMINATION TYPE: MR pelvis wo/w con DATE OF EXAM: 06/29/2022 COMPARISON: 12/09/2021 HISTORY: Follow up on ovarian cysts/abnormal MRI. CONTRAST: Standard multiplanar, multisequence MRI departmental protocol images were obtained without contrast a nd with 7 mL intravenous Gadavist gadolinium contrast. Uterus is anteverted. Endometrium appears normal. There is an exophytic fibroid on the posterior uter ine fundus that measures 2.7 cm. There are other smaller uterine fibroids that measure up to 1.3 cm. The right ovary measures 2.8 cm. Left ovary measures 3.4 cm. No suspicious adnexal mass. No free flui d in the pelvis. There are small multiple cervical cysts. Urinary bladder distends smoothly. The sacr um is intact. No presacral edema. No evidence of bladder mass. IMPRESSION: Exophytic uterine fundal fibroid without change. No adnexal mass. No evidence of ovarian mass and no adverse change compared to the old exam.
== END | disposition home or self-care (01) ==
LOC: RADMRIMAIN 14:28
PROVIDERS: ATTEND Obstetrics & Gynecology
DX: C56.9 Malignant neoplasm of unspecified ovary (principal); D25.9 Leiomyoma of uterus, unspecified
CPT/HCPCS: 72197; A9585

== ENCOUNTER → 2022-10-22 | Outpatient (CLI) | payer OTHER ==
[2022-10-22 11:38] VITALS: BP 156/89; PULSE 81; RESP 16; TEMP 97.8
--- NOTE | 2022-10-22 12:38 | P.HPOB ---
History of Present Illness H&P Date: 10/22/22 Chief Complaint: The patient is here for her routine gynecologic exam and ma mmogram. This is a 52-year-old G0 with an LNMP of August 2021. Menstrual periods and vaginal bleeding have been infrequent and light since her LNMP. In May she had spotting and in July and August of this year she had light vaginal bleeding. The patient still denies any sexual activity in her lifetime. She has been followed for a pelvic mass since 2019. At that time she had a known fi broid uterus and had a complex left ovarian cyst. She had a CA-125 that was elevated at 231. She was referred to Dr. Brooke, the gynecologic oncologist at [facility] in [place]. Surgery was initially planned to determine the exact nature of the mass, but because of the Covid pandemic, the surgery is postponed. The decision was made to follow the mass conservatively without surgery and serial MRIs were planned. Her CA-125 test decreased into the 80s. In November 2021 she had an MRI which showed bilateral ovarian cysts and her most recent MRI on 06/29/2022 showed no adnexal masses with an exophytic uterine fibroid measuring 2.7 cm with smaller fibroids also noted. Her pains have significantly decreased and she does have infrequent pains which can be on either side. Review of Systems The patient has lost 6 pounds over the last year. She denies respiratory, cardiac, or G.I. problems. Past Medical History Past Medical History: Hypertension Additional Past Medical History / Comment(s): possible TIA in 2012, heavy menstral cycles resulting in chronic anemia, esophageal stricture per GI doc krishna s not require intervention at this time, multiple UTI's. 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 She had a 4.2 cm fibroid in 2019. History of endometriosis. History of Any Multi-Drug Resistant Organisms: None Reported Past Surgical History: Cholecystectomy Additional Past Surgical History / Comment(s): colonoscopy 2013(next after 10yr) Past Anesthesia/Blood Transfusion Reactions: No Reported Reaction Past Psychological History: No Psychological Hx Reported Smoking Status: Never smoker Past Alcohol Use History: None Reported Past Drug Use History: None Reported Additional History: The patient is single and has never been sexually active. She cares for her elderly father. 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 - Past Family History Father Family Medical History: Cancer, Diabetes Mellitus Additional Family Medical History / Comment(s): Skin cancer. Mother Family Medical History: Myocardial Infarction (SD) Medications and Allergies Home Medications Medication Instructions Recorded Confirmed Type Ferrous Sulfate [Iron (65 MG 325 mg PO DAILY 02/09/16 10/22/22 History Elemental)] Lisinopril-Hctz 10-12.5 mg 1 tab PO DAILY 02/09/16 10/22/22 History [Zestoretic 10-12.5] Cholecalciferol (Vitamin D3) 2,000 unit PO DAILY 09/14/19 10/22/22 History [Vitamin D3] Ibuprofen [Motrin] 400 mg PO Q6HR PRN 09/14/19 10/22/22 History Multivit-Min/Iron/Folic/Lutein 1 each PO DAILY 10/02/21 10/22/22 History [Centrum Silver Women Tablet] Ascorbic Acid [Vitamin C] 500 mg PO BID 10/22/22 10/22/22 History Pantoprazole [Protonix] 40 mg PO DAILY 10/22/22 10/22/22 History Zinc Gluconate [Zinc] 50 mg PO DAILY 10/22/22 10/22/22 History Allergies Allergy/AdvReac Type Severity Reaction Status Date / Time ANTIBIOTIC FOR UTI Allergy Mild Itching Uncoded 10/22/22 11:29 Exam Vital Signs Temp Pulse Resp BP Pulse Ox 10/22/22 11:31 97.8 F 81 16 156/89 99 Intake and Output 10/21/22 10/22/22 10/22/22 22:59 06:59 14:59 Other: Weight 73.028 kg Height 5 feet 2 inches, weight 161 pounds, BMI 29.4. This is a well-developed well-nourished white female who is alert and oriented times 3 in no acute distress. HEENT: Within normal limits. NECK: Supple without mass or thyromegaly. CHEST AND LUNGS: Clear to auscultation. HEART: Regular rate and rhythm. BREASTS: Are without mass or discharge. AXILLARY EXAM: Negative for adenopathy. BACK: Negative for CVA tenderness. ABDOMEN: Soft, nontender, without palpable masses. PELVIC EXAM: Normal external genitalia. Introitus is virginal with a hymenal opening of approximately 2 cm. A small Owens speculum was used. Cervix and vagina appear normal. There is no unusual discharge. There is no evidence of prolapse. The uterus is midposition, nongravid size and nontender. There are no palpable adnexal masses or tenderness. RECTAL EXAM: negative for mass or tenderness and is negative for occult blood. EXTREMITIES: Nontender. IMPRESSION: 1. 52-year-old perimenopausal female with normal gynecologic exam. 2. History of bilateral ovarian masses that have resolved by MRI done on 06/29/2022. Based on her history and previous findings, the previous bilateral ovarian masses probably represented endometriomas. 3. History of elevated CA-125 testing which may have been secondary to the bilateral endometriomas. 4. History of uterine fibroids with her most recent MRI showing a 2.7 cm exophytic fibroid. PLAN: 1. Pap smear was deferred since she had a negative Pap smear cotest on 10/02/2021. 2. Self breast awareness was discussed with the patient. We have also discussed symptoms associated with inflammatory breast cancer. 3. Diagnostic bilateral mammogram will be done today. She had a previous abnormal mammogram. 4. She was told by Dr. Brooke to have a CA-125 test drawn. The patient states she has not had it drawn and she is not sure if she has the order slip. The patient was given an order slip for this and she will have this drawn today. 5. I have recommended that she still follow-up with Dr. Brooke because of the history of her elevated CA-125 test and history of pelvic masses. 6. She was advised to return in one year for her annual well woman exam and as needed.
--- NOTE | 2022-10-22 15:52 | MM ---
Reason for Exam: Follow-up at short interval from prior study. Last screening mammogram was performed 12 month(s) ago. Patient History: Menarche at age 11. Patient has no children. Perimenopausal. Last menstrual period: Risk Values: Laura 5 year model risk: 1.3%. NCI Lifetime model risk: 9.3%. Tissue Density: The breast tissue is heterogeneously dense. This may lower the sensitivity of mammography. Findings: Analyzed By CAD. No suspicious mass or distortion is evident within the right breast. Bilateral breasts appear normal. There are scattered benign appearing calcifications. No significant interval changes are evident. No suspicious groups of microcalcifications, spiculated or lobular masses, architectural distortion or other secondary signs of malignancy are mammographically apparent. Overall Assessment: Benign, BI-RAD 2 Management: Screening Mammogram of both breasts in 1 year. A negative mammogram report should not preclude additional follow up of suspicious palpable abnormalities. Patient should continue monthly self breast exam. A clinical breast exam by your physician is recommended on an annual basis and results should be correlated with mammographic findings. Electronically signed and approved by: Jorje oHod D.O. Radiologis
--- NOTE | 2022-10-23 13:41 | P.PN ---
Progress Note - Text Progress Note Date: 10/23/22 OUTPATIENT FOLLOW-UP NOTE TEST(S)/RESULTS: Test results from 10/22/2022 include benign bilateral diagnostic mammogram and CA-125 which was minimally elevated at 32.2. METHOD OF NOTIFICATION: The patient was notified by phone. PATIENT COMMENTS: The patient states she will make an appointment to follow up with the gynecologic oncologist, Dr. Brooke. DIAGNOSIS: Benign mammogram and minimally elevated CA-125 test. DISCUSSION: Her CA-125 test had previously been greater than 200. She was seeing Dr. Brooke on a regular basis and this was followed conservatively with serial MRIs and CA-125 testing. Her most recent MRI done on 06/29/2022 no longer showed any adnexal masses. PLAN: She will follow-up with Dr. Brooke to see what follow-up she should have for the elevated CA-125 test. She was advised to return in one year for her annual well woman exam.
== END ==
LOC: WWCWWP 11:20
PROVIDERS: ATTEND Obstetrics & Gynecology
DX: Z01.419 Encounter for gynecological examination (general) (routine) without abnormal findings (principal); Z12.31 Encounter for screening mammogram for malignant neoplasm of breast; R19.09 Other intra-abdominal and pelvic swelling, mass and lump; R97.1 Elevated cancer antigen 125 [CA 125]; Z88.1 Allergy status to other antibiotic agents
CPT/HCPCS: 86304; 77066; G0279; 77062

== ENCOUNTER → 2023-09-02 | Outpatient (CLI) | payer OTHER ==
[2023-09-02 08:58] VITALS: BP 148/90; PULSE 61; RESP 17; TEMP 97.8
--- NOTE | 2023-09-02 09:39 | P.PN ---
Progress Note - Text Progress Note Date: 09/02/23 Chief Complaint: Intermittent pelvic pains during the past 2 weeks. HPI: This is a 53-year-old G0 with an LMP of August 2022. In 2021 she had some irregular infrequent bleeding, but had not had any bleeding for about 1 year. About 2 weeks ago she developed some intermittent mild Oki type pains and soreness in the left pelvic and left lower abdomen region. When she had the discomfort she rated it at a 2-3 out of 10. She also noticed a slight clear discharge which had an older with no itching. Last week she had an episode of be discharged having a pink spot. Now she no longer notices the odor or discharge or blood. The discomfort is now just a minimal soreness and she rates it about a 0.5 out of 10. She had been followed for bilateral ovarian masses which were felt to possibly be endometriomas. She did have an MRI on 06/29/2022 which showed no ovarian masses, but did show an exophytic fibroid measuring 2.7 cm. She did previously have some hot flashes 1-2 years ago, but these have premature resolved. ROS: She is gained about 3 pounds over the past year. She denies respiratory or cardiac,. Musculoskeletal: She has had occasional back pains and attributes this to lifting her father who has had some health issues recently. GI: Last week she had episode of diarrhea but this resolved. She denies any other GI problems. : She denies urinary symptoms such as urinary frequency, dysuria, or urinary urgency. PE: Blood pressure: 148/90, Height: 5 feet 2 inches, Weight: 164 pounds, Temperature: 97.8, Pulse: 61. Pulse oximeter 96%. BMI 30.0. This is a well developed, well nourished, white female who is alert and orientedx3, in no acute distress. Abdomen: Soft, nontender, without palpable masses. There are 1+ bowel sounds. Pelvic exam: Normal external genitalia. The introitus is virginal and accepts the pediatric speculum. No unusual discharge or blood was noted. No odor was noted. The cervix appears normal. There is no cervical motion tenderness. Digital bimanual examination could be performed with a single digit. The uterus is nongravid size and somewhat firm consistent with uterine fibroids. There are no palpable adnexal masses or tenderness. Impression: 1. 53-year-old menopausal female with intermittent mild left pelvic pains without any significant physical findings at this time. 2. One episode of post menopausal vaginal spotting. Differential diagnosis will include vaginitis blood and even minimal ovarian function since she has just recently achieved one year of amenorrhea. 3. Slight vaginal discharge and odor per the patient without significant physical findings on exam today. Differential diagnosis will include bacterial vaginosis, physiologic discharge, and mora vaginitis. 4. Known uterine fibroids. 5. History of probable endometriosis. Plan: 1. Affirm vaginitis panel was obtained from the vagina. 2. Pelvic ultrasound was recommended. We can evaluate for ovarian masses or cysts as well as evaluate the endometrial thickness and uterine fibroids. The order slip was given the patient for this pain 3. Since she had had an elevated CA-125 which decreased significantly around the time of her menopausal change, we will consider repeating the CA-125 test if there are any signs of adnexal masses or cysts. 4. She has been under last stressed regarding her father's bad health. I have stressed the importance of taking good care of her self with good nutrition and regular activity. 5. She will return early in 2023 for her annual well woman examination and as needed. Time spent with the patient: 35 minutes
== END ==
LOC: WWCWWP 08:39
PROVIDERS: ATTEND Obstetrics & Gynecology
DX: R10.2 Pelvic and perineal pain (principal); D25.9 Leiomyoma of uterus, unspecified; Z78.0 Asymptomatic menopausal state; Z88.1 Allergy status to other antibiotic agents

== ENCOUNTER → 2023-09-23 | Outpatient (CLI) | payer OTHER ==
--- NOTE | 2023-09-23 16:16 | US ---
EXAMINATION TYPE: US pelvic complete DATE OF EXAM: 09/23/2023 COMPARISON: MR pelvis 06/29/2022 CLINICAL INDICATION: Female, 53 years old with history of N95.0 POST MENOPUASAL, D25.9; History of fi broids, ovarian cysts. spotting TECHNIQUE: Transabdominal (TA). - patient refusing TV exam at this time Date of LMP: 1 year ago EXAM MEASUREMENTS: Uterus: 8.9 x 4.5 x 6.2 cm Endometrial Stripe: 1.0 cm Right Ovary: 4.0 x 2.6 x 2.6 cm Left Ovary: 3.4 x 2.7 x 2.3 cm Technical limitations due to overlying bowel gas 1. Uterus: Anteverted fibroids noted, largest = 1.8 x 2.2 x 2.1cm 2. Endometrium: Thickened. 3. Right Ovary: appears wnl 4. Left Ovary: appears wnl 5. Bilateral Adnexa: wnl 6. Posterior cul-de-sac: wnl Fibroid changes the uterus with hypoechoic appearance. These appear intramural in location. Mildly th ickened endometrium. Both ovaries appear unremarkable. No free fluid. IMPRESSION: 1. Mildly thickened endometrium measuring up to 1 cm for postmenopausal status. Etiologies include en dometrial hyperplasia versus polyp versus endometrial carcinoma. Direct visualization is recommended. 2. Fibroid changes of the uterus.
== END | disposition home or self-care (01) ==
LOC: RADUSWWP 14:47
PROVIDERS: ATTEND Obstetrics & Gynecology
DX: D25.9 Leiomyoma of uterus, unspecified (principal); N95.0 Postmenopausal bleeding; N85.8 Other specified noninflammatory disorders of uterus
CPT/HCPCS: 76856

== ENCOUNTER → 2024-02-06 | Outpatient (CLI) | payer OTHER ==
--- NOTE | 2024-02-09 16:19 | XR ---
EXAMINATION TYPE: XR chest 2V DATE OF EXAM: 02/06/2024 COMPARISON: 02/09/2016 HISTORY: 53-year-old female R07.89, other chest pain TECHNIQUE: Frontal and lateral views FINDINGS: Heart normal size. Minimal atherosclerotic arch calcifications. Aorta and pulmonary vasculature are w ithin normal limits. No consolidation or pleural effusion. Cholecystectomy clips. IMPRESSION: No acute cardiopulmonary process.
== END | disposition home or self-care (01) ==
LOC: RADXRMAIN 15:39
PROVIDERS: ATTEND Family Medicine
DX: I70.0 Atherosclerosis of aorta (principal)
CPT/HCPCS: 71046

== ENCOUNTER → 2024-02-17 | Outpatient (CLI) | payer OTHER ==
[2024-02-17 13:05] VITALS: BP 134/93; PULSE 80; RESP 17; TEMP 97.8
--- NOTE | 2024-02-17 13:37 | P.HPOB ---
History of Present Illness H&P Date: 02/17/24 Chief Complaint: The patient is here for her routine gynecologic exam and ma mmogram. This is a 53-year-old G0 with an LMP of July 2023. The patient is virginal and is not sexually active. Her last vaginal bleeding was in July 2023. Prior to that it has been about 10 months from her last period. She has not had 12 months of amenorrhea. She states her hot flashes are increasing during the past 3-4 months. She had a pelvic ultrasound done on 09/23/2023 which showed an endometrial thickness of 1 cm. She also had uterine fibroids with the largest measuring 2.2 cm. The ovaries were normal-appearing bilaterally. She states she has not had any bleeding since that bleeding episode in July. She is otherwise without gynecologic complaints. Review of Systems She is getting about 14 pounds over the past year. There have been some lifestyle changes and inactivity after her father in November. She denies respiratory or GI problems. Cardiac: She has had some chest tightness and has been seen for this. She is going to be scheduled for an echocardiogram. Past Medical History Past Medical History: Hypertension Additional Past Medical History / Comment(s): possible TIA in 2012, heavy menstral cycles resulting in chronic anemia, esophageal stricture per GI doc does not require intervention at this time, multiple UTI's. 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 She had a 4.2 cm fibroid in 2019. History of endometriosis. History of Any Multi-Drug Resistant Organisms: None Reported Past Surgical History: Cholecystectomy Additional Past Surgical History / Comment(s): colonoscopy 2013(next after 10yr) Past Anesthesia/Blood Transfusion Reactions: No Reported Reaction Past Psychological History: No Psychological Hx Reported Smoking Status: Never smoker Past Alcohol Use History: None Reported Past Drug Use History: None Reported Additional History: She is single and has never been sexually active. 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 - Past Family History Father Family Medical History: Cancer, Congestive Heart Failure (CHF), Diabetes Mellitus Additional Family Medical History / Comment(s): Skin cancer. . Possible massive SD. Mother Family Medical History: Myocardial Infarction (SD) Medications and Allergies Home Medications Medication Instructions Recorded Confirmed Type Ferrous Sulfate [Iron (65 MG 325 mg PO DAILY 02/09/16 02/17/24 History Elemental)] Lisinopril-Hctz 10-12.5 mg 1 tab PO DAILY 02/09/16 02/17/24 History [Zestoretic 10-12.5] Cholecalciferol (Vitamin D3) 2,000 unit PO DAILY 09/14/19 02/17/24 History [Vitamin D3] Ibuprofen [Motrin] 400 mg PO Q6HR PRN 09/14/19 02/17/24 History Multivit-Min/Iron/Folic/Lutein 1 each PO DAILY 10/02/21 02/17/24 History [Centrum Silver Women Tablet] Ascorbic Acid [Vitamin C] 500 mg PO BID 10/22/22 02/17/24 History Allergies Allergy/AdvReac Type Severity Reaction Status Date / Time ANTIBIOTIC FOR UTI Allergy Mild Itching Uncoded 02/17/24 12:50 Exam Vital Signs Temp Pulse Resp BP Pulse Ox 02/17/24 12:52 97.8 F 80 17 134/93 97 Intake and Output 02/16/24 02/17/24 02/17/24 22:59 06:59 14:59 Other: Weight 79.379 kg Height 5 feet 2 inches, weight 175 pounds, BMI 32.0. This is a well-developed well-nourished white female who is alert and oriented times 3 in no acute distress. HEENT: Within normal limits. NECK: Supple without mass or thyromegaly. CHEST AND LUNGS: Clear to auscultation. HEART: Regular rate and rhythm. BREASTS: Are without mass or discharge. AXILLARY EXAM: Negative for adenopathy. BACK: Negative for CVA tenderness. ABDOMEN: Soft, nontender, without palpable masses. PELVIC EXAM: Normal external genitalia. The introitus is virginal and allows the very small disposable speculum. Cervix and vagina appear normal. There is no unusual discharge. There is no evidence of prolapse. Bimanual examination is somewhat limited secondary to the introitus only allowing my smallest digit to enter. The uterus is midposition, nongravid size and nontender. There are no palpable adnexal masses or tenderness. RECTAL EXAM: Rectovaginal exam is negative for mass or tenderness and is negative for occult blood. EXTREMITIES: Nontender. IMPRESSION: 1. 53-year-old perimenopausal virginal female with unremarkable gynecologic exam. 2. History of uterine fibroids. 3. History of endometriosis. 4. Endometrial thickness was 10 mm in August 2023. This may be thickened for a menopausal female, however being that she consider her perimenopausal this may not be abnormal. PLAN: 1. Pap smear was deferred since she had a negative Pap smear cotest on 10/02/2021 2. Self breast awareness was discussed with the patient. We have also discussed symptoms associated with inflammatory breast cancer. 3. Screening mammogram will be done today. 4. Osteoporosis prevention was discussed. I have stressed the importance of adequate calcium, vitamin D and regular exercise. Recommended amounts of calcium and vitamin D were also discussed. 5. Pelvic ultrasound was recommended and the order slip was given to the patient for this. If there is increasing endometrial thickness, consider referral for endometrial sampling with D&C. Also consider this if she is having abnormal bleeding. 6. She is due for a colonoscopy since her last one was 10 years ago. She was prepared her PCP regarding this. 7. She was advised to return in one year for her annual well woman exam and as needed.
--- NOTE | 2024-02-18 22:56 | MM ---
Reason for Exam: Screening (asymptomatic). Last mammogram was performed 1 year(s) and 4 month(s) ago. Patient History: Menarche at age 11. Patient has no children. Perimenopausal. Risk Values: Laura 5 year model risk: 1.3%. NCI Lifetime model risk: 9.1%. Prior Study Comparison: 09/28/2021 Right Diagnostic Mammogram, [facility]. 04/09/2022 Right MG 3D diag mammo w/cad RT, [facility]. 10/22/2022 Bilateral MG 3D diag mammo w/cad KASSANDRA, [facility]. Tissue Density: The breasts are heterogeneously dense, which may obscure small masses. Findings: Analyzed By CAD. The pattern is symmetrical. Benign punctate calcifications are present bilaterally. Some chronic nodularity is in the outer left breast. No suspicious groups of microcalcifications, spiculated or lobular masses, architectural distortion or other secondary signs of malignancy are mammographically apparent. Overall Assessment: Benign, BI-RAD 2 Management: Screening Mammogram of both breasts in 1 year. A negative mammogram report should not preclude additional follow up of suspicious palpable abnormalities. Patient should continue monthly self breast exam. A clinical breast exam by your physician is recommended on an annual basis and results should be correlated with mammographic findings. Electronically signed and approved by: Jorje Hood D.O. Radiologis
== END ==
LOC: WWCWWP 12:40
PROVIDERS: ATTEND Obstetrics & Gynecology
DX: Z12.31 Encounter for screening mammogram for malignant neoplasm of breast (principal); D25.9 Leiomyoma of uterus, unspecified; N80.9 Endometriosis, unspecified; Z88.1 Allergy status to other antibiotic agents; Z78.0 Asymptomatic menopausal state
CPT/HCPCS: 77063; 77067

== ENCOUNTER → 2024-07-20 | Outpatient (CLI) | payer OTHER ==
--- NOTE | 2024-07-20 13:54 | US ---
EXAMINATION TYPE: US pelvic complete DATE OF EXAM: 07/20/2024 COMPARISON: 09/23/2023 CLINICAL INDICATION: Female, 54 years old with history of R93.8 ABNORMAL FINDINGS ON DX IMAGING OF OT H BODY STRUCTURES; TECHNIQUE: Transabdominal sonographic images of the pelvis were acquired. Transvaginal sonographic images were medically not necessary ; Patient is not sexually active Date of LMP: 08/24/2023 EXAM MEASUREMENTS: Uterus: 7.5 x 4.8 x 5.0 cm Endometrial Stripe: Estimated at 0.9 cm but not well delineated Right Ovary: 3.7 x 2.2 x 2.4 cm Left Ovary: 3.5 x 2.5 x 3.0 cm 1. Uterus: There is a poor acoustic window in the bladder is nondistended. Limited detailed assessme nt of the junctional anatomy of the uterus. Heterogeneous myometrium. Anteverted questionable fibro id = 4.5 x 3.8 x 3.7 cm at the right uterine fundus. 2. Endometrium: Not well delineated, possibly thickened. 3. Right Ovary: Limited detailed visualization 4. Left Ovary: Limited detailed visualization 5. Bilateral Adnexa: wnl 6. Posterior cul-de-sac: wnl IMPRESSION: 1. Exam limited due to poor acoustic window as the bladder was nondistended. 2. Limited detailed assessment of the junctional anatomy of the uterus. Possible endometrial thickeni ng up to 9 mm. Correlate for any postmenopausal bleeding. Either follow-up ultrasound versus female p elvic MRI if clinically indicated. 3. Possible 4.8 cm right uterine fundal fibroid.
--- NOTE | 2024-07-28 12:48 | P.PN ---
Progress Note - Text Progress Note Date: 07/28/24 OUTPATIENT FOLLOW-UP NOTE TEST(S)/RESULTS: Pelvic ultrasound done on 07/20/2024 revealed findings suggestive of uterine fibroids and an ET estimated at 0.9cm, but was not well delineated. METHOD OF NOTIFICATION: The patient was notified by phone on 07/28/24. PATIENT COMMENTS: The patient has been amenorrheic for about 10months and has not gone a full year without a period. DIAGNOSIS: fibroid uterus, ET consistent with perimenopause. DISCUSSION: I reviewed the ultrasound images with Dr. Simons, the radiologist. The images were suboptimal probably due to the bladder not being very full. The patient confirms that it was not as full as ultrasound studies in the past. She is virginal and a vaginal probe ultrasound could not be done due to the small vaginal opening. She will return in 6 months when she is due for her annual exam. A repeat pelvic ultrasound can be scheduled at that time. If she is fully menopausal with at least 12 months of amenorrhea, we can expect a thinner endometrium, and if it is thickened, we can plan some type of sampling. She was instructed to call if abnormal bleeding. She was instructed to be sure her bladder is full with future pelvic ultrasounds. PLAN: As above.
== END | disposition home or self-care (01) ==
LOC: RADUSWWP 11:40
PROVIDERS: ATTEND Obstetrics & Gynecology
DX: R93.89 Abnormal findings on diagnostic imaging of other specified body structures
CPT/HCPCS: 76856